=== PATIENT | female | born 1995 | race Asian ===

== ENCOUNTER 2019-09-10 22:32 | Outpatient (CLI) | payer SELFPAY ==
[~2019-09-10] VITALS: Ht 162.6 cm; Wt 79.5 kg
[2019-09-10 22:57] VITALS: BP 105/65
[2019-09-11 00:27] LABS: MICROSCOPIC AUTO
[2019-09-11 00:35] LABS: BASOPHILS # (AUTO) 0.04 x10^3/uL (0-0.1); BASOPHILS % (AUTO) 1 % (0-1); EOSINOPHILS # (AUTO) 0.16 x10^3/uL (0-0.4); EOSINOPHILS % (AUTO) 2 % (1-7); LYMPHOCYTES # (AUTO) 2.13 x10^3/uL (1-3.4); LYMPHOCYTES % (AUTO) 24 % (22-44); MD NO; MEAN CORPUSCULAR HEMOGLOBIN 30.9 pg (27.0-34.8); MEAN CORPUSCULAR HGB CONC 32.8 g/dL (32.4-35.8); MEAN CORPUSCULAR VOLUME 94.2 fL (80-100); MEAN PLATELET VOLUME 7.5 fL (7.4-10.4); MONOCYTES # (AUTO) 0.55 x10^3/uL (0.2-0.8); MONOCYTES % (AUTO) 6 % (2-9); NEUTROPHILS # (AUTO) 5.96 x10^3/uL (1.8-6.8); NEUTROPHILS % (AUTO) 67 % (42-75); PLATELET COUNT 379 x10^3/uL (130-400); RED BLOOD COUNT 3.53 x10^6/uL (3.82-5.3); RED CELL DISTRIBUTION WIDTH 13.1 % (9.6-15.2)
[2019-09-11 00:38] LABS: AMPHETAMINE SCREEN, URINE Negative (Negative); BARBITURATE SCREEN, URINE Negative (Negative); BENZODIAZEPINE SCREEN, URINE Negative (Negative); CANNABINOID SCREEN, URINE Negative (Negative); COCAINE SCREEN, URINE Negative (Negative); METHADONE SCREEN, URINE Negative (Negative); OPIATE SCREEN, URINE Negative (Negative)
[2019-09-11] MEDS ORDERED: NITR100C56 PO (00:52)
[2019-09-11] MEDS ORDERED: ACETAMINOPHEN 325 MG TABLET ONE (01:11)
[2019-09-11] MEDS ORDERED: ACETAMINOPHEN 325 MG TABLET PO ONE (01:30)
== END 2019-09-11 01:20 | disposition home or self-care (01) ==
LOC: LDOP 22:32
PROVIDERS: ATTEND Obstetrics & Gynecology
DX: O26.893 Other specified pregnancy related conditions, third trimester (principal); O23.43 Unspecified infection of urinary tract in pregnancy, third trimester; R10.30 Lower abdominal pain, unspecified; Z3A.30 30 weeks gestation of pregnancy
CPT/HCPCS: 36415; 59025; 76805; 80307; 81001; 85025; 86592; 86762; 86803; 86850; 86900; 87086; 87340; 87389; 99211; G0463

== ENCOUNTER 2019-09-11 15:14 | Outpatient (CLI) | payer SELFPAY ==
[~2019-09-11] VITALS: Ht 162.6 cm; Wt 81.8 kg
[~2019-09-11 15:14] MED LIST: NITR100C56 PO
[2019-09-11] MEDS ORDERED: TERBUTALINE 1 MG/ML, 1ML ONE (15:50)
[2019-09-11] MEDS ORDERED: TERBUTALINE 1 MG/ML, 1ML SQ ONE (16:00)
[2019-09-11] MEDS ORDERED: PLEASE ENTER HEIGHT AND WEIGHT MC SCH (16:30)
[2019-09-11] MEDS ORDERED: PLEASE ENTER ALLERGIES MC SCH (16:30)
[2019-09-11] MEDS ORDERED: FENTANYL PF 100 MCG/2ML ONE ×2 (16:44→18:19)
[2019-09-11] MEDS ORDERED: ONDANSETRON 2MG/ML, 2ML ONE (16:44)
[2019-09-11] MEDS: FENTANYL PF 100 MCG/2ML IVPush PRN ×2 (16:46→18:28)
[2019-09-11] MEDS ORDERED: MORPHINE SULFATE 4 MG/ML, 1ML IVPush PRN (17:00)
[2019-09-11] MEDS ORDERED: ONDANSETRON 2MG/ML, 2ML IVPush PRN (17:00)
[2019-09-11] MEDS ORDERED: LACTATED RINGERS 1,000 ML IV SCH (17:30)
[2019-09-11] MEDS ORDERED: LACTATED RINGERS 1,000 ML IVBOLUS ONE (17:30)
[2019-09-11 17:31] LABS: MEAN CORPUSCULAR HEMOGLOBIN 30.9 pg (27.0-34.8); MEAN CORPUSCULAR HGB CONC 33.2 g/dL (32.4-35.8); MEAN CORPUSCULAR VOLUME 93.2 fL (80-100); MEAN PLATELET VOLUME 7.6 fL (7.4-10.4); PLATELET COUNT 331 x10^3/uL (130-400); RED BLOOD COUNT 3.36 x10^6/uL (3.82-5.3); RED CELL DISTRIBUTION WIDTH 13.4 % (9.6-15.2)
[2019-09-11 17:32] LABS: ALANINE AMINOTRANSFERASE 10 U/L (12-78); ALBUMIN 2.6 g/dL (3.4-5.0); ANION GAP 10 mmol/L (5-15); CALCIUM 8.1 mg/dL (8.5-10.1); CHLORIDE 106 mmol/L (98-107); CREATININE 0.63 mg/dL (0.55-1.02)
[2019-09-11 17:34] LABS: ALKALINE PHOSPHATASE 72 U/L (45-117); BILIRUBIN,TOTAL 0.2 mg/dL (0.2-1.0); TOTAL PROTEIN 7.4 g/dL (6.4-8.2)
[2019-09-11 17:47] VITALS: BP 101/62
[2019-09-11 18:09] LABS: MD YES
[2019-09-11 18:11] LABS: BAND#(MANUAL) 2.62 x10^3/uL; BANDS%(MANUAL) 17 % (0-7); LYMPH#(MANUAL) 2.62 x10^3/uL (1-3.4); LYMPHS% (MANUAL) 17 % (22-44); MONOS#(MANUAL) 0.46 x10^3/uL (0.3-2.7); MONOS% (MANUAL) 3 % (2-9); SEGS% (MANUAL) 63 % (42-75)
[2019-09-11 18:12] LABS: <PLATELET ESTIMATE> ADEQUATE; <PLT MORPHOLOGY> NORMAL PLT MORPH; <RBC MORPHOLOGY> NORMAL
[2019-09-11] MEDS ORDERED: CEFTRIAXONE 250 MG IV ONE (19:00)
[2019-09-11] MEDS ORDERED: CEFTRIAXONE 250 MG in SODIUM CHLORIDE 0.9% 50 ML IV ONE (19:30)
== END 2019-09-11 19:20 | disposition home or self-care (01) ==
LOC: LDOP 15:14 → UNDOADMOB 17:06 → LDIP 17:06 → LDOP 19:20 → UNDODISOB 19:20
PROVIDERS: ATTEND Obstetrics & Gynecology
DX: O26.893 Other specified pregnancy related conditions, third trimester (principal); M54.9 Dorsalgia, unspecified; R55 Syncope and collapse; Z3A.30 30 weeks gestation of pregnancy
CPT/HCPCS: 36415; 59025; 76700; 80053; 82150; 83690; 85025; 96361; 96372; 96374; 96375; 96376; 99211; J2405; J3010; J3105; J7120; 96360; G0378; G0463

== ENCOUNTER 2019-09-11 19:31 | Inpatient (IN) | payer MEDICAID, OTHER ==
[~2019-09-11] VITALS: Ht 162.6 cm; Wt 76.3 kg
--- NOTE | 2019-09-11 19:42 | NUR ---
PT WITH PAIN "IN MY BACK IN MY STOMACH" PT WENT STRAIGHT TO L&D. PT CLEARED FROM L&D AND SENT TO ED FOR MONITORING TO RECIEVED K RIDER FOR LOW K. PT ATTACHED TO ALL MONITORS
--- NOTE | 2019-09-11 19:49 | NUR ---
PT STATES SHE RECIEVED A PAIN PILL IN L&D
[2019-09-11] MEDS ORDERED: POTASSIUM CHLORIDE 40 MEQ in SODIUM CHLORIDE 0.9% 500 ML IV ONE (20:30)
[2019-09-11] MEDS ORDERED: ONDANSETRON 2MG/ML, 2ML IVPush ONE (20:30)
[2019-09-11] MEDS ORDERED: SODIUM CHLORIDE FLUSH 10ML SYR IVF ONE (20:30)
[2019-09-11] MEDS ORDERED: CEFTRIAXONE PMX 1GM/50ML 50 ML IV ONE (20:30)
[2019-09-11] MEDS ORDERED: ONDANSETRON 2MG/ML, 2ML ONE (20:32)
[2019-09-11] MEDS ORDERED: MORPHINE SULFATE 4 MG/ML, 1ML ONE ×2 (20:32→22:20)
[2019-09-11] MEDS: MORPHINE SULFATE 4 MG/ML, 1ML IVPush PRN ×2 (20:33→22:21)
[2019-09-11] MEDS ORDERED: CEFTRIAXONE PMX 1GM/50ML 50 ML ONE (20:37)
--- NOTE | 2019-09-11 20:48 | NUR ---
PER ER MD MCDONALD, NO BLOOD CULTURES BEFORE ABX
--- NOTE | 2019-09-11 20:51 | NUR ---
PER ARCHIE IN PHARM, K CL AND ROCEPHIN ARE COMPATIBLE IN IV
--- NOTE | 2019-09-11 20:57 | NUR ---
PT RESTING ON GURNEY. STATES HER PAIN HAS IMPROVED AFTER PAIN MEDS FROM A 10/10 TO A 5/10. IV MEDS STARTED PER EMAR.
[2019-09-11 20:58] LABS: BASOPHILS # (AUTO) 0.01 x10^3/uL (0-0.1); BASOPHILS % (AUTO) 0 % (0-1); EOSINOPHILS % (AUTO) 0 % (1-7); LYMPHOCYTES # (AUTO) 0.54 x10^3/uL (1-3.4); LYMPHOCYTES % (AUTO) 5 % (22-44); MD NO; MEAN CORPUSCULAR HEMOGLOBIN 30.6 pg (27.0-34.8); MEAN CORPUSCULAR VOLUME 92.6 fL (80-100); MEAN PLATELET VOLUME 6.9 fL (7.4-10.4); MONOCYTES # (AUTO) 0.21 x10^3/uL (0.2-0.8); MONOCYTES % (AUTO) 2 % (2-9); NEUTROPHILS # (AUTO) 9.83 x10^3/uL (1.8-6.8); NEUTROPHILS % (AUTO) 93 % (42-75); PLATELET COUNT 291 x10^3/uL (130-400); RED BLOOD COUNT 3.22 x10^6/uL (3.82-5.3); RED CELL DISTRIBUTION WIDTH 12.8 % (9.6-15.2)
[2019-09-11 21:03] LABS: ALANINE AMINOTRANSFERASE 10 U/L (12-78); ALBUMIN 2.4 g/dL (3.4-5.0); ANION GAP 10 mmol/L (5-15); CALCIUM 7.8 mg/dL (8.5-10.1); CHLORIDE 106 mmol/L (98-107)
[2019-09-11 21:20] LABS: ALKALINE PHOSPHATASE 66 U/L (45-117); BILIRUBIN,TOTAL 0.5 mg/dL (0.2-1.0); TOTAL PROTEIN 6.8 g/dL (6.4-8.2)
--- NOTE | 2019-09-11 22:23 | NUR ---
PT REPORTS INCREASING PAIN IN ABD 08/16. PT MEDICATED FOR PAIN PER EMAR.
[2019-09-11 22:36] LABS: MICROSCOPIC INDICATED
[2019-09-11 22:37] LABS: CULTURE INDICATED? YES
--- NOTE | 2019-09-11 22:44 | NUR ---
REPORT TO KAREN HARRELL ON L&D
[2019-09-11] MEDS ORDERED: OXYcodone/APAP 5/325MG TABLET ONE (23:53)
[2019-09-11] MEDS: OXYcodone/APAP 5/325MG TABLET PO PRN (23:54)
[2019-09-12] MEDS ORDERED: POTASSIUM CHLORIDE 20 MEQ TAB.ER.PRT PO SCH
[2019-09-12] MEDS ORDERED: ONDANSETRON ODT 4 MG PO PRN
[2019-09-12] MEDS ORDERED: FENTANYL PF 100 MCG/2ML ONE ×2 (00:46→07:37)
[2019-09-12] MEDS: OXYcodone/APAP 5/325MG TABLET PO PRN ×2 (00:50→05:39)
[2019-09-12] MEDS: LACTATED RINGERS 1,000 ML IV SCH ×3 (00:54→23:56)
[2019-09-12] MEDS ORDERED: FENTANYL PF 100 MCG/2ML IVPush ONE ×2 (01:00→08:00)
[2019-09-12] MEDS ORDERED: FLU VACC QS2019-20 36MOS UP/PF 0.5 ML IM-VACC ONE (04:30)
[2019-09-12 05:38] LABS: MEAN CORPUSCULAR HEMOGLOBIN 30.7 pg (27.0-34.8); MEAN CORPUSCULAR HGB CONC 33.4 g/dL (32.4-35.8); MEAN CORPUSCULAR VOLUME 92.1 fL (80-100); MEAN PLATELET VOLUME 7.2 fL (7.4-10.4); PLATELET COUNT 272 x10^3/uL (130-400); RED BLOOD COUNT 3.16 x10^6/uL (3.82-5.3); RED CELL DISTRIBUTION WIDTH 13.5 % (9.6-15.2)
[2019-09-12] MEDS ORDERED: OXYcodone/APAP 5/325MG TABLET ONE (05:38)
[2019-09-12 05:50] LABS: ALBUMIN 2.3 g/dL (3.4-5.0); ANION GAP 10 mmol/L (5-15); CALCIUM 8.1 mg/dL (8.5-10.1); CHLORIDE 106 mmol/L (98-107)
[2019-09-12 05:54] LABS: ALKALINE PHOSPHATASE 59 U/L (45-117); BILIRUBIN,TOTAL 0.4 mg/dL (0.2-1.0); TOTAL PROTEIN 6.5 g/dL (6.4-8.2)
[2019-09-12 05:56] LABS: ALANINE AMINOTRANSFERASE < 6 U/L (12-78)
[2019-09-12 05:57] LABS: MD YES
[2019-09-12 05:59] LABS: BAND#(MANUAL) 3.67 x10^3/uL; BANDS%(MANUAL) 24 % (0-7); LYMPH#(MANUAL) 1.22 x10^3/uL (1-3.4); LYMPHS% (MANUAL) 8 % (22-44); METAMYELOCYTES# (MANUAL) 0.15 x10^3/uL (0-0); METAMYELOCYTES% (MANUAL) 1 % (0-1); MONOS#(MANUAL) 0.31 x10^3/uL (0.3-2.7); MONOS% (MANUAL) 2 % (2-9); SEG#(MANUAL) 9.95 x10^3/uL (1.8-6.8); SEGS% (MANUAL) 65 % (42-75)
[2019-09-12 06:03] LABS: <PLATELET ESTIMATE> ADEQUATE; <RBC MORPHOLOGY> NORMAL
[2019-09-12 06:04] LABS: <PLT MORPHOLOGY> NORMAL PLT MORPH
[2019-09-12 11:35] VITALS: BP 98/61
[2019-09-12] MEDS ORDERED: ACETAMINOPHEN 325 MG TABLET ONE ×2 (11:53→23:54)
[2019-09-12] MEDS: ACETAMINOPHEN 325 MG TABLET PO PRN ×2 (11:54→23:56)
[2019-09-12] MEDS ORDERED: MORPHINE SULFATE 4 MG/ML, 1ML ONE ×3 (16:10→23:46)
[2019-09-12] MEDS: MORPHINE SULFATE 4 MG/ML, 1ML IVPush PRN ×3 (16:13→23:49)
[2019-09-12] MEDS: METRONIDAZOLE PMX 500MG/100ML 100 ML IV SCH (18:16)
[2019-09-12] MEDS ORDERED: CEFTRIAXONE PMX 1GM/50ML 50 ML IV SCH (20:30)
[2019-09-12 20:53] VITALS: BP 104/71
[2019-09-13] MEDS: METRONIDAZOLE PMX 500MG/100ML 100 ML IV SCH (01:31)
[2019-09-13 02:08] LABS: MEAN CORPUSCULAR HEMOGLOBIN 31.1 pg (27.0-34.8); MEAN CORPUSCULAR HGB CONC 33.3 g/dL (32.4-35.8); MEAN CORPUSCULAR VOLUME 93.6 fL (80-100); MEAN PLATELET VOLUME 7.2 fL (7.4-10.4); PLATELET COUNT 252 x10^3/uL (130-400); RED BLOOD COUNT 2.85 x10^6/uL (3.82-5.3); RED CELL DISTRIBUTION WIDTH 13.4 % (9.6-15.2)
[2019-09-13 02:26] LABS: MICROSCOPIC INDICATED
[2019-09-13 02:48] LABS: MD YES
[2019-09-13 02:49] LABS: <RBC MORPHOLOGY> NORMAL; BAND#(MANUAL) 0.46 x10^3/uL; BANDS%(MANUAL) 4 % (0-7); LYMPH#(MANUAL) 1.37 x10^3/uL (1-3.4); LYMPHS% (MANUAL) 12 % (22-44); MONOS#(MANUAL) 0.57 x10^3/uL (0.3-2.7); MONOS% (MANUAL) 5 % (2-9); SEG#(MANUAL) 9.01 x10^3/uL (1.8-6.8); SEGS% (MANUAL) 79 % (42-75)
[2019-09-13 02:50] LABS: <PLATELET ESTIMATE> ADEQUATE; <PLT MORPHOLOGY> NORMAL PLT MORPH; PMNS WITH VACUOLES 1+
[2019-09-13] MEDS ORDERED: D5%-LACTATED RINGERS 1,000 ML IV SCH (03:00)
[2019-09-13] MEDS: PIPERACILLIN/TAZO/PMX 3.375GM 50 ML IV SCH ×3 (03:07→08:32)
[2019-09-13] MEDS ORDERED: ACETAMINOPHEN 325 MG TABLET ONE (03:31)
[2019-09-13] MEDS ORDERED: MORPHINE SULFATE 4 MG/ML, 1ML ONE ×2 (03:31→08:27)
[2019-09-13] MEDS: MORPHINE SULFATE 4 MG/ML, 1ML IVPush PRN ×2 (03:36→08:32)
[2019-09-13] MEDS: ACETAMINOPHEN 325 MG TABLET PO PRN (03:37)
[2019-09-13 03:51] LABS: RAPID INFLUENZA A Negative (Negative); RAPID INFLUENZA B Negative (Negative)
[2019-09-13 06:45] LABS: BASOPHILS % (AUTO) 0 % (0-1); EOSINOPHILS # (AUTO) 0.01 x10^3/uL (0-0.4); EOSINOPHILS % (AUTO) 0 % (1-7); LYMPHOCYTES # (AUTO) 0.83 x10^3/uL (1-3.4); LYMPHOCYTES % (AUTO) 7 % (22-44); MD NO; MEAN CORPUSCULAR HEMOGLOBIN 31.8 pg (27.0-34.8); MEAN CORPUSCULAR HGB CONC 33.7 g/dL (32.4-35.8); MEAN CORPUSCULAR VOLUME 94.3 fL (80-100); MEAN PLATELET VOLUME 7.2 fL (7.4-10.4); MONOCYTES # (AUTO) 0.97 x10^3/uL (0.2-0.8); MONOCYTES % (AUTO) 8 % (2-9); NEUTROPHILS # (AUTO) 10.42 x10^3/uL (1.8-6.8); NEUTROPHILS % (AUTO) 85 % (42-75); PLATELET COUNT 241 x10^3/uL (130-400); RED BLOOD COUNT 2.73 x10^6/uL (3.82-5.3); RED CELL DISTRIBUTION WIDTH 13.8 % (9.6-15.2)
[2019-09-13 06:54] LABS: ALBUMIN 2.1 g/dL (3.4-5.0); ANION GAP 7 mmol/L (5-15); CALCIUM 7.7 mg/dL (8.5-10.1); CHLORIDE 111 mmol/L (98-107); CREATININE 0.69 mg/dL (0.55-1.02)
[2019-09-13 06:55] LABS: ALANINE AMINOTRANSFERASE < 6 U/L (12-78)
[2019-09-13 06:56] LABS: ALKALINE PHOSPHATASE 57 U/L (45-117); BILIRUBIN,TOTAL 0.4 mg/dL (0.2-1.0); TOTAL PROTEIN 6.3 g/dL (6.4-8.2)
[2019-09-13] MEDS: LACTATED RINGERS 1,000 ML IV SCH ×3 (07:31→15:27)
[2019-09-13] MEDS ORDERED: ETOMIDATE 20 MG/10 ML ONE (08:00)
[2019-09-13] MEDS ORDERED: PROPOFOL 100 ML IV ONE (08:00)
[2019-09-13] MEDS ORDERED: ROCURONIUM 10 MG/ML,10ML ONE (08:00)
[2019-09-13] MEDS ORDERED: LIDOCAINE 1%, 10ML ONE (08:56)
[2019-09-13] MEDS: PRENATAL VIT/IRON/FA 1 EACH TABLET PO SCH (09:00)
[2019-09-13] MEDS ORDERED: PROPOFOL 10 MG/ML, 20ML ONE (10:10)
[2019-09-13] MEDS ORDERED: VISIPAQUE 270 MG/ML, 50ML BOTTLE ONE (10:48)
[2019-09-13] MEDS ORDERED: FENTANYL PF 100 MCG/2ML ONE ×2 (11:37→13:38)
[2019-09-13] MEDS ORDERED: PROPOFOL 0 ML IV ONE (11:42)
[2019-09-13] MEDS ORDERED: PROPOFOL 100 ML IV PRN ×2 (12:00→13:44)
[2019-09-13] MEDS ORDERED: NOREPINEPHRINE 4 MG in SODIUM CHLORIDE 0.9% 246 ML IV PRN (12:00)
[2019-09-13] MEDS ORDERED: BETAMETHASONE 6 MG/ML, 5ML IM SCH (12:00)
[2019-09-13] MEDS ORDERED: LACTATED RINGERS 1,000 ML IVBOLUS ONE (12:00)
[2019-09-13] MEDS ORDERED: ACETAMINOPHEN 650 MG SUPP ONE (12:10)
[2019-09-13 12:18] LABS: PROTHROMBIN TIME 10.5 Seconds (9.6-11.5)
[2019-09-13 12:26] LABS: ALANINE AMINOTRANSFERASE < 6 U/L (12-78); ALBUMIN 2.1 g/dL (3.4-5.0); ANION GAP 9 mmol/L (5-15); CALCIUM 7.7 mg/dL (8.5-10.1); CHLORIDE 110 mmol/L (98-107); CREATININE 1.08 mg/dL (0.55-1.02)
[2019-09-13] MEDS ORDERED: ACETAMINOPHEN 650 MG SUPP PR PRN (12:30)
[2019-09-13] MEDS ORDERED: LACTATED RINGERS 1,000 ML IV SCH (12:30)
[2019-09-13 12:31] LABS: ALKALINE PHOSPHATASE 66 U/L (45-117); BILIRUBIN,TOTAL 0.5 mg/dL (0.2-1.0); TOTAL PROTEIN 6.6 g/dL (6.4-8.2); TROPONIN I < 0.015 ng/mL (0.000-0.045)
[2019-09-13 12:49] LABS: MEAN CORPUSCULAR HEMOGLOBIN 30.8 pg (27.0-34.8); MEAN CORPUSCULAR VOLUME 93.3 fL (80-100); PLATELET COUNT 224 x10^3/uL (130-400); RED BLOOD COUNT 3.15 x10^6/uL (3.82-5.3); RED CELL DISTRIBUTION WIDTH 13.8 % (9.6-15.2)
[2019-09-13 12:50] LABS: MD YES
[2019-09-13] MEDS: VANCOMYCIN 1,200 MG in SODIUM CHLORIDE 0.9% 250 ML IV SCH (13:25)
[2019-09-13 13:43] LABS: BAND#(MANUAL) 0.48 x10^3/uL; BANDS%(MANUAL) 21 % (0-7); LYMPH#(MANUAL) 1.04 x10^3/uL (1-3.4); LYMPHS% (MANUAL) 45 % (22-44); METAMYELOCYTES# (MANUAL) 0.02 x10^3/uL (0-0); METAMYELOCYTES% (MANUAL) 1 % (0-1); MONOS#(MANUAL) 0.02 x10^3/uL (0.3-2.7); MONOS% (MANUAL) 1 % (2-9); SEG#(MANUAL) 0.74 x10^3/uL (1.8-6.8); SEGS% (MANUAL) 32 % (42-75)
[2019-09-13 13:44] LABS: <PLATELET ESTIMATE> ADEQUATE; <PLT MORPHOLOGY> NORMAL PLT MORPH; <RBC MORPHOLOGY> NORMAL; HEMOGRAM NOTE RECHECKED
[2019-09-13] MEDS ORDERED: VASOPRESSIN 100 UNIT in SODIUM CHLORIDE 0.9% 495 ML IV PRN (13:44)
[2019-09-13] MEDS ORDERED: BISACODYL 10 MG SUPP PR PRN (14:00)
[2019-09-13] MEDS ORDERED: PHARMACY MAY ADJ FOR RENAL FX MC SCH (14:00)
[2019-09-13] MEDS ORDERED: LACTULOSE 20 GM/30 ML UDC NG PRN (14:00)
[2019-09-13] MEDS ORDERED: DEXTROSE 4 GM TAB.CHEW PO PRN (14:00)
[2019-09-13] MEDS ORDERED: SENNA 176 MG/5 ML ORAL SOL NG PRN (14:00)
[2019-09-13] MEDS ORDERED: DEXTROSE 50%, 50ML SYRINGE IVPush PRN (14:00)
[2019-09-13] MEDS ORDERED: LIDOCAINE-MPF 1%, 2ML ENDO PRN (14:00)
[2019-09-13] MEDS ORDERED: FENTANYL PF 100 MCG/2ML IVPush ONE (14:00)
[2019-09-13] MEDS ORDERED: SENNA/DOCUSATE TABLET NG PRN (14:00)
[2019-09-13] MEDS ORDERED: GLUCAGON 1 MG IM PRN (14:00)
[2019-09-13] MEDS ORDERED: SODIUM CHLORIDE 0.9% 1,000ML IV SCH (14:00)
[2019-09-13] MEDS ORDERED: DEXMEDETOMIDINE 1,000 MCG in SODIUM CHLORIDE 0.9% 240 ML IV PRN (14:32)
[2019-09-13] MEDS ORDERED: BETAMETHASONE 6 MG/ML, 5ML IM ONE (14:33)
[2019-09-13 14:38] LABS: ANION GAP 5 mmol/L (5-15); CALCIUM 6.9 mg/dL (8.5-10.1); CHLORIDE 112 mmol/L (98-107); CREATININE 0.68 mg/dL (0.55-1.02)
[2019-09-13] MEDS: FENTANYL PF 100 MCG/2ML IVPush PRN ×3 (14:41→22:32)
[2019-09-13] MEDS: ALBUTEROL/IPRATROPIUM 2.5MG/0.5MG, 3 ML INLINE SCH ×3 (14:55→22:21)
[2019-09-13] MEDS ORDERED: DEXMEDETOMIDINE 200 MCG in SODIUM CHLORIDE 0.9% 48 ML IV PRN (15:00)
[2019-09-13] MEDS: MEROPENEM 1 GM in SODIUM CHLORIDE 0.9% 100 ML IV SCH ×2 (15:06→21:42)
[2019-09-13] MEDS: FAMOTIDINE 20 MG/2 ML IV SCH (15:40)
[2019-09-13] MEDS ORDERED: MAGNESIUM SULFATE PMX 2GM/50ML 50 ML ONE (15:50)
[2019-09-13] MEDS ORDERED: MAGNESIUM SULFATE PMX 2GM/50ML 50 ML IV ONE (16:00)
[2019-09-13] MEDS ORDERED: INSULIN LISPRO 100 UNITS/ML, PEN SQ-INSULIN SCH (16:00)
[2019-09-13] MEDS ORDERED: POTASSIUM CHLORIDE 40 MEQ in SODIUM CHLORIDE 0.9% 100 ML IV ONE (16:00)
[2019-09-13] MEDS ORDERED: MIDAZOLAM 1 MG/ML, 2ML ONE (16:18)
[2019-09-13] MEDS: MIDAZOLAM HCL 25 MG in SODIUM CHLORIDE 0.9% 245 ML IV PRN ×2 (16:28→20:15)
[2019-09-13] MEDS ORDERED: VASOPRESSIN 20 UNIT/ML, 1ML IVPush ONE (16:30)
[2019-09-13] MEDS ORDERED: SODIUM BICARBONATE 1 MEQ/ML, 50ML VIAL IVPush STA (16:45)
[2019-09-13] MEDS ORDERED: SODIUM BICARBONATE 1 MEQ/ML, 50ML VIAL ONE (16:48)
[2019-09-13] MEDS: NOREPINEPHRINE 4 MG in SODIUM CHLORIDE 0.9% 246 ML IV PRN ×2 (17:03→20:00)
[2019-09-13] MEDS: PHENYLEPHRINE 20 MG in SODIUM CHLORIDE 0.9% 248 ML IV PRN ×2 (17:31→23:22)
[2019-09-13] MEDS: HYDROCORTISONE 100 MG INJ. IVPush SCH (17:48)
[2019-09-13] MEDS: HEPARIN 5,000 UNITS/ML, 1ML SQ SCH (20:15)
[2019-09-13] MEDS ORDERED: SODIUM BICARBONATE 8.4% 150 MEQ in DEXTROSE 5% 1,000 ML IV SCH (21:00)
[2019-09-13] MEDS: SODIUM CHLORIDE FLUSH 10ML SYR IVF SCH (21:07)
[2019-09-13] MEDS ORDERED: NOREPINEPHRINE 8 MG in SODIUM CHLORIDE 0.9% 246 ML IV PRN (22:00)
[2019-09-13 22:21] LABS: ANION GAP 8 mmol/L (5-15); CHLORIDE 114 mmol/L (98-107); CREATININE 0.48 mg/dL (0.55-1.02)
[2019-09-13] MEDS: INSULIN LISPRO 100 UNITS/ML, PEN SQ-INSULIN SCH (23:20)
[2019-09-13 23:31] LABS: MEAN CORPUSCULAR HEMOGLOBIN 31.1 pg (27.0-34.8); MEAN CORPUSCULAR VOLUME 94.3 fL (80-100); MEAN PLATELET VOLUME 7.7 fL (7.4-10.4); PLATELET COUNT 257 x10^3/uL (130-400); RED BLOOD COUNT 2.96 x10^6/uL (3.82-5.3); RED CELL DISTRIBUTION WIDTH 13.7 % (9.6-15.2)
[2019-09-13 23:38] LABS: INTERNATIONAL NORMALIZED RATIO 1.02 (0.93-1.1); PROTHROMBIN TIME 10.7 Seconds (9.6-11.5)
[2019-09-13 23:58] LABS: MD YES
[2019-09-14] MEDS ORDERED: SODIUM BICARB 8.4%, 50ML SYRINGE IVPush STA
[2019-09-14 00:01] LABS: <RBC MORPHOLOGY> NORMAL; BAND#(MANUAL) 1.64 x10^3/uL; BANDS%(MANUAL) 8 % (0-7); LYMPH#(MANUAL) 0.62 x10^3/uL (1-3.4); LYMPHS% (MANUAL) 3 % (22-44); MONOS#(MANUAL) 0.21 x10^3/uL (0.3-2.7); MONOS% (MANUAL) 1 % (2-9); SEG#(MANUAL) 18.04 x10^3/uL (1.8-6.8); SEGS% (MANUAL) 88 % (42-75)
[2019-09-14 00:02] LABS: <PLATELET ESTIMATE> ADEQUATE; <PLT MORPHOLOGY> NORMAL PLT MORPH
[2019-09-14] MEDS: HYDROCORTISONE 100 MG INJ. IVPush SCH ×3 (00:14→15:44)
[2019-09-14] MEDS: FENTANYL PF 100 MCG/2ML IVPush PRN ×7 (00:25→18:40)
[2019-09-14] MEDS: DOBUTAMINE/D5W PMX 250 ML IV SCH ×2 (00:45→20:20)
[2019-09-14] MEDS: MIDAZOLAM HCL 25 MG in SODIUM CHLORIDE 0.9% 245 ML IV PRN ×2 (01:37→07:31)
[2019-09-14] MEDS: FAMOTIDINE 20 MG/2 ML IV SCH ×2 (01:50→13:21)
[2019-09-14] MEDS: VANCOMYCIN 1,200 MG in SODIUM CHLORIDE 0.9% 250 ML IV SCH (01:55)
[2019-09-14] MEDS: ALBUTEROL/IPRATROPIUM 2.5MG/0.5MG, 3 ML INLINE SCH ×6 (02:14→22:00)
[2019-09-14 04:22] LABS: MEAN CORPUSCULAR HEMOGLOBIN 31.2 pg (27.0-34.8); MEAN CORPUSCULAR HGB CONC 33.2 g/dL (32.4-35.8); MEAN CORPUSCULAR VOLUME 93.8 fL (80-100); MEAN PLATELET VOLUME 7.6 fL (7.4-10.4); PLATELET COUNT 198 x10^3/uL (130-400); RED BLOOD COUNT 2.75 x10^6/uL (3.82-5.3); RED CELL DISTRIBUTION WIDTH 13.9 % (9.6-15.2)
[2019-09-14] MEDS: HEPARIN 5,000 UNITS/ML, 1ML SQ SCH ×3 (04:24→20:07)
[2019-09-14 04:27] LABS: ALANINE AMINOTRANSFERASE 12 U/L (12-78); ALBUMIN 1.5 g/dL (3.4-5.0); ANION GAP 13 mmol/L (5-15); CALCIUM 7.2 mg/dL (8.5-10.1); CHLORIDE 113 mmol/L (98-107); CREATININE 0.48 mg/dL (0.55-1.02)
[2019-09-14 04:30] LABS: ALKALINE PHOSPHATASE 85 U/L (45-117); BILIRUBIN,TOTAL 0.6 mg/dL (0.2-1.0); TOTAL PROTEIN 5.1 g/dL (6.4-8.2)
[2019-09-14] MEDS ORDERED: SODIUM BICARBONATE 1 MEQ/ML, 50ML VIAL ONE (04:41)
[2019-09-14] MEDS: MEROPENEM 1 GM in SODIUM CHLORIDE 0.9% 100 ML IV SCH ×3 (04:58→21:35)
[2019-09-14 05:00] VITALS: BP 102/55
[2019-09-14] MEDS: INSULIN LISPRO 100 UNITS/ML, PEN SQ-INSULIN SCH ×4 (05:00→23:30)
[2019-09-14] MEDS ORDERED: SODIUM BICARB 8.4%, 50ML SYRINGE IVPush ONE (05:00)
[2019-09-14] MEDS ORDERED: FUROSEMIDE 20 MG/2 ML IV ONE (05:00)
[2019-09-14 05:43] LABS: BASOPHILS % (AUTO) 0 % (0-1); EOSINOPHILS # (AUTO) 0.02 x10^3/uL (0-0.4); EOSINOPHILS % (AUTO) 0 % (1-7); LYMPHOCYTES # (AUTO) 0.88 x10^3/uL (1-3.4); LYMPHOCYTES % (AUTO) 5 % (22-44); MD SCAN; MONOCYTES # (AUTO) 0.41 x10^3/uL (0.2-0.8); MONOCYTES % (AUTO) 2 % (2-9); NEUTROPHILS # (AUTO) 15.98 x10^3/uL (1.8-6.8); NEUTROPHILS % (AUTO) 92 % (42-75)
[2019-09-14] MEDS ORDERED: POTASSIUM CHLORIDE 40 MEQ in SODIUM CHLORIDE 0.9% 100 ML IV ONE (07:00)
[2019-09-14] MEDS ORDERED: MAGNESIUM SULFATE PMX 4GM/100M 100 ML IV ONE (07:00)
[2019-09-14] MEDS: ALBUMIN HUMAN 25% 100 ML IV SCH ×3 (08:35→23:24)
[2019-09-14] MEDS: SODIUM CHLORIDE FLUSH 10ML SYR IVF SCH ×2 (09:00→20:22)
[2019-09-14] MEDS: PRENATAL VIT/IRON/FA 1 EACH TABLET PO SCH (09:10)
--- NOTE | 2019-09-14 10:38 | NUR ---
TF GOAL when ordered: w/ propofol: OSMOLITE 1.2 @ 65ml/hr off propofol: 70ml/hr
[2019-09-14] MEDS ORDERED: LACTATED RINGERS 1,000 ML IV SCH (12:30)
[2019-09-14] MEDS: SODIUM BICARBONATE 8.4% 150 MEQ in DEXTROSE 5% 1,000 ML IV SCH (12:36)
[2019-09-14] MEDS: MIDAZOLAM HCL 50 MG in SODIUM CHLORIDE 0.9% 240 ML IV PRN ×2 (13:00→20:21)
[2019-09-14 15:36] LABS: ANION GAP 14 mmol/L (5-15); CALCIUM 7.2 mg/dL (8.5-10.1); CHLORIDE 112 mmol/L (98-107); CREATININE 0.42 mg/dL (0.55-1.02)
[2019-09-14] MEDS ORDERED: POTASSIUM CHLORIDE 40 MEQ in SODIUM CHLORIDE 0.9% 100 ML IV STA (16:46)
[2019-09-14] MEDS: ACETAMINOPHEN 325 MG TABLET PO PRN (17:52)
[2019-09-14] MEDS ORDERED: SODIUM BICARBONATE 8.4% 150 MEQ in DEXTROSE 5% 1,000 ML IV SCH (21:00)
[2019-09-15 00:17] LABS: ANION GAP 9 mmol/L (5-15); CALCIUM 7.5 mg/dL (8.5-10.1); CHLORIDE 117 mmol/L (98-107); CREATININE 0.47 mg/dL (0.55-1.02)
[2019-09-15] MEDS: FENTANYL PF 100 MCG/2ML IVPush PRN ×5 (00:50→23:39)
[2019-09-15] MEDS: HYDROCORTISONE 100 MG INJ. IVPush SCH ×3 (00:51→17:00)
[2019-09-15] MEDS ORDERED: POTASSIUM CHLORIDE 40 MEQ in SODIUM CHLORIDE 0.9% 100 ML IV ONE (01:00)
[2019-09-15] MEDS: FAMOTIDINE 20 MG/2 ML IV SCH ×2 (01:55→14:04)
[2019-09-15] MEDS: SODIUM BICARBONATE 8.4% 150 MEQ in DEXTROSE 5% 1,000 ML IV SCH (01:56)
[2019-09-15] MEDS: ALBUTEROL/IPRATROPIUM 2.5MG/0.5MG, 3 ML INLINE SCH ×3 (03:00→10:38)
[2019-09-15] MEDS: HEPARIN 5,000 UNITS/ML, 1ML SQ SCH ×3 (03:56→19:41)
[2019-09-15] MEDS: INSULIN LISPRO 100 UNITS/ML, PEN SQ-INSULIN SCH ×4 (05:23→22:26)
[2019-09-15] MEDS: MEROPENEM 1 GM in SODIUM CHLORIDE 0.9% 100 ML IV SCH ×3 (05:24→21:58)
[2019-09-15] MEDS: MIDAZOLAM HCL 50 MG in SODIUM CHLORIDE 0.9% 240 ML IV PRN (05:25)
[2019-09-15 05:49] LABS: CALCIUM 7.6 mg/dL (8.5-10.1); CHLORIDE 116 mmol/L (98-107)
[2019-09-15 05:53] LABS: ANION GAP 8 mmol/L (5-15)
[2019-09-15 06:15] LABS: MEAN CORPUSCULAR HEMOGLOBIN 30.6 pg (27.0-34.8); MEAN CORPUSCULAR HGB CONC 33.2 g/dL (32.4-35.8); MEAN CORPUSCULAR VOLUME 92.2 fL (80-100); MEAN PLATELET VOLUME 7.2 fL (7.4-10.4); PLATELET COUNT 168 x10^3/uL (130-400); RED BLOOD COUNT 2.06 x10^6/uL (3.82-5.3); RED CELL DISTRIBUTION WIDTH 13.4 % (9.6-15.2)
[2019-09-15 07:01] LABS: BASOPHILS # (AUTO) 0.01 x10^3/uL (0-0.1); BASOPHILS % (AUTO) 0 % (0-1); EOSINOPHILS % (AUTO) 0 % (1-7); LYMPHOCYTES % (AUTO) 6 % (22-44); MD SCAN; MONOCYTES # (AUTO) 0.63 x10^3/uL (0.2-0.8); MONOCYTES % (AUTO) 5 % (2-9); NEUTROPHILS # (AUTO) 11.01 x10^3/uL (1.8-6.8); NEUTROPHILS % (AUTO) 89 % (42-75)
[2019-09-15] MEDS: ALBUMIN HUMAN 25% 100 ML IV SCH ×3 (07:33→23:30)
[2019-09-15 07:47] VITALS: BP 118/72
[2019-09-15 08:00] VITALS: BP 118/72
[2019-09-15 08:15] VITALS: BP 107/56
[2019-09-15 08:45] LABS: HIT RESULT NEGATIVE (NEGATIVE)
[2019-09-15 08:52] LABS: ANION GAP 9 mmol/L (5-15); CALCIUM 7.4 mg/dL (8.5-10.1); CHLORIDE 115 mmol/L (98-107); CREATININE 0.38 mg/dL (0.55-1.02)
[2019-09-15 09:00] VITALS: BP 110/60
[2019-09-15] MEDS: PRENATAL VIT/IRON/FA 1 EACH TABLET PO SCH (09:05)
[2019-09-15] MEDS: SODIUM CHLORIDE FLUSH 10ML SYR IVF SCH ×2 (09:05→19:41)
[2019-09-15] MEDS: POTASSIUM CHLORIDE 20 MEQ TAB.ER.PRT PO SCH ×2 (09:06→19:41)
[2019-09-15 09:36] LABS: ALBUMIN 2.5 g/dL (3.4-5.0); BILIRUBIN, DIRECT 0.2 mg/dL (0.1-0.2)
[2019-09-15 09:38] LABS: BILIRUBIN,INDIRECT 0.2 mg/dL (0.0-2.0); BILIRUBIN,TOTAL 0.4 mg/dL (0.2-1.0); TOTAL PROTEIN 5.1 g/dL (6.4-8.2)
[2019-09-15 10:30] VITALS: BP 120/82
[2019-09-15] MEDS ORDERED: ELECTROLYTE REPLACEMENT PROTOCOL CRITICAL CARE ONLY MC PRN (12:00)
[2019-09-15] MEDS ORDERED: FUROSEMIDE 20 MG/2 ML IV ONE (12:00)
[2019-09-15] MEDS ORDERED: POTASSIUM CHLORIDE 20 MEQ TAB.ER.PRT PO ONE (13:00)
[2019-09-15] MEDS: DOBUTAMINE/D5W PMX 250 ML IV SCH (15:40)
[2019-09-16] MEDS: HEPARIN 5,000 UNITS/ML, 1ML SQ SCH ×3 (01:11→20:33)
[2019-09-16] MEDS: FAMOTIDINE 20 MG/2 ML IV SCH (01:11)
[2019-09-16] MEDS: HYDROCORTISONE 100 MG INJ. IVPush SCH (01:11)
[2019-09-16] MEDS: FENTANYL PF 100 MCG/2ML IVPush PRN (03:54)
[2019-09-16] MEDS: INSULIN LISPRO 100 UNITS/ML, PEN SQ-INSULIN SCH ×2 (04:09→12:04)
[2019-09-16 04:21] LABS: MEAN CORPUSCULAR HEMOGLOBIN 30.7 pg (27.0-34.8); MEAN CORPUSCULAR HGB CONC 32.9 g/dL (32.4-35.8); MEAN CORPUSCULAR VOLUME 93.1 fL (80-100); MEAN PLATELET VOLUME 7.7 fL (7.4-10.4); PLATELET COUNT 164 x10^3/uL (130-400); RED BLOOD COUNT 2.55 x10^6/uL (3.82-5.3); RED CELL DISTRIBUTION WIDTH 13.7 % (9.6-15.2)
[2019-09-16 04:28] LABS: ANION GAP 6 mmol/L (5-15); CALCIUM 8.2 mg/dL (8.5-10.1); CHLORIDE 115 mmol/L (98-107); CREATININE 0.41 mg/dL (0.55-1.02); TRIGLYCERIDES 205 mg/dL (50-200)
[2019-09-16 04:38] LABS: BASOPHILS % (AUTO) 0 % (0-1); EOSINOPHILS % (AUTO) 0 % (1-7); LYMPHOCYTES # (AUTO) 0.93 x10^3/uL (1-3.4); LYMPHOCYTES % (AUTO) 8 % (22-44); MD SCAN; MONOCYTES # (AUTO) 0.59 x10^3/uL (0.2-0.8); MONOCYTES % (AUTO) 5 % (2-9); NEUTROPHILS # (AUTO) 9.73 x10^3/uL (1.8-6.8); NEUTROPHILS % (AUTO) 87 % (42-75)
[2019-09-16] MEDS: MEROPENEM 1 GM in SODIUM CHLORIDE 0.9% 100 ML IV SCH (05:32)
[2019-09-16] MEDS ORDERED: CEFTRIAXONE PMX 1GM/50ML 50 ML IV SCH (09:00)
[2019-09-16] MEDS: SODIUM CHLORIDE 0.9% 1,000 ML IV SCH ×2 (09:22→21:20)
[2019-09-16] MEDS: IRON SUCROSE COMPLEX 100MG/5ML IV SCH (09:43)
[2019-09-16] MEDS: LACTULOSE 20 GM/30 ML UDC PO SCH ×2 (09:43→20:33)
[2019-09-16] MEDS: PRENATAL VIT/IRON/FA 1 EACH TABLET PO SCH (09:43)
[2019-09-16] MEDS: SODIUM CHLORIDE FLUSH 10ML SYR IVF SCH ×2 (09:43→20:33)
[2019-09-16] MEDS: POTASSIUM CHLORIDE 20 MEQ TAB.ER.PRT PO SCH ×2 (09:43→20:33)
[2019-09-16 10:04] LABS: % IRON SATURATION 28 % (20-55); IRON LEVEL 83 mcg/dL (50-170); TOTAL IRON BINDING CAPACITY 299 mcg/dL (250-450)
[2019-09-16 10:19] VITALS: BP 108/71
[2019-09-16 10:35] VITALS: BP 100/68
[2019-09-16 11:00] VITALS: BP 107/75
[2019-09-16 11:30] VITALS: BP 111/75
[2019-09-16 12:00] VITALS: BP 112/72
[2019-09-16] MEDS: MORPHINE SULFATE 4 MG/ML, 1ML IVPush PRN (12:18)
[2019-09-16 13:00] VITALS: BP 112/76
[2019-09-16] MEDS ORDERED: FUROSEMIDE 20 MG/2 ML IV ONE (14:00)
[2019-09-16] MEDS: CEFTRIAXONE PMX 2GM/50ML 50 ML IV SCH (14:34)
[2019-09-17] MEDS: MORPHINE SULFATE 4 MG/ML, 1ML IVPush PRN (00:18)
[2019-09-17 04:34] LABS: BASOPHILS # (AUTO) 0.02 x10^3/uL (0-0.1); BASOPHILS % (AUTO) 0 % (0-1); EOSINOPHILS # (AUTO) 0.11 x10^3/uL (0-0.4); EOSINOPHILS % (AUTO) 1 % (1-7); LYMPHOCYTES # (AUTO) 1.77 x10^3/uL (1-3.4); LYMPHOCYTES % (AUTO) 18 % (22-44); MD NO; MEAN CORPUSCULAR HEMOGLOBIN 30.8 pg (27.0-34.8); MEAN CORPUSCULAR HGB CONC 33.4 g/dL (32.4-35.8); MEAN CORPUSCULAR VOLUME 92.2 fL (80-100); MEAN PLATELET VOLUME 7.3 fL (7.4-10.4); MONOCYTES # (AUTO) 0.43 x10^3/uL (0.2-0.8); MONOCYTES % (AUTO) 4 % (2-9); NEUTROPHILS # (AUTO) 7.47 x10^3/uL (1.8-6.8); NEUTROPHILS % (AUTO) 76 % (42-75); PLATELET COUNT 164 x10^3/uL (130-400); RED BLOOD COUNT 2.81 x10^6/uL (3.82-5.3)
[2019-09-17 04:46] LABS: ANION GAP 7 mmol/L (5-15); CALCIUM 7.7 mg/dL (8.5-10.1); CHLORIDE 112 mmol/L (98-107); CREATININE 0.41 mg/dL (0.55-1.02)
[2019-09-17] MEDS: HEPARIN 5,000 UNITS/ML, 1ML SQ SCH ×3 (05:28→20:01)
[2019-09-17] MEDS ORDERED: SODIUM PHOSPHATE 40 MMOL in SODIUM CHLORIDE 0.9% 500 ML IV ONE (07:00)
[2019-09-17] MEDS ORDERED: MAGNESIUM SULFATE PMX 4GM/100M 100 ML IV ONE (07:00)
[2019-09-17] MEDS: SODIUM CHLORIDE FLUSH 10ML SYR IVF SCH ×2 (07:55→20:03)
[2019-09-17] MEDS: PRENATAL VIT/IRON/FA 1 EACH TABLET PO SCH (07:55)
[2019-09-17] MEDS ORDERED: OXYcodone IR 5MG TABLET ONE ×4 (08:01→22:55)
[2019-09-17] MEDS: POTASSIUM CHLORIDE 20 MEQ TAB.ER.PRT PO SCH ×2 (08:04→17:14)
[2019-09-17] MEDS: IRON SUCROSE COMPLEX 100MG/5ML IV SCH (08:04)
[2019-09-17] MEDS: OXYcodone IR 5MG TABLET PO PRN ×4 (08:04→22:58)
[2019-09-17] MEDS: SODIUM CHLORIDE 0.9% 1,000 ML IV SCH ×2 (10:40→15:25)
[2019-09-17 11:30] LABS: ALBUMIN 2.6 g/dL (3.4-5.0); BILIRUBIN, DIRECT 0.3 mg/dL (0.1-0.2)
[2019-09-17 11:32] LABS: BILIRUBIN,INDIRECT 0.6 mg/dL (0.0-2.0); BILIRUBIN,TOTAL 0.9 mg/dL (0.2-1.0); TOTAL PROTEIN 5.9 g/dL (6.4-8.2)
[2019-09-17 12:41] VITALS: BP 95/51
[2019-09-17 14:17] VITALS: BP 97/47
[2019-09-17] MEDS: CEFTRIAXONE PMX 2GM/50ML 50 ML IV SCH (14:38)
[2019-09-17 16:00] VITALS: BP 97/56
[2019-09-17] MEDS ORDERED: HEPARIN 5,000 UNITS/ML, 1ML ONE (16:42)
[2019-09-17 18:00] VITALS: BP 100/64
[2019-09-17 23:15] LABS: ALANINE AMINOTRANSFERASE 42 U/L (12-78); ALBUMIN 2.4 g/dL (3.4-5.0); ANION GAP 6 mmol/L (5-15); CALCIUM 7.6 mg/dL (8.5-10.1); CHLORIDE 110 mmol/L (98-107)
[2019-09-17 23:17] LABS: ALKALINE PHOSPHATASE 69 U/L (45-117); BILIRUBIN,TOTAL 0.6 mg/dL (0.2-1.0); CREATININE 0.28 mg/dL (0.55-1.02); TOTAL PROTEIN 5.8 g/dL (6.4-8.2)
[2019-09-18] MEDS ORDERED: OXYcodone IR 5MG TABLET ONE ×6 (02:47→21:39)
[2019-09-18] MEDS: OXYcodone IR 5MG TABLET PO PRN ×5 (02:51→20:49)
[2019-09-18] MEDS ORDERED: HEPARIN 5,000 UNITS/ML, 1ML ONE ×2 (03:01→11:46)
[2019-09-18] MEDS: SODIUM CHLORIDE 0.9% 1,000 ML IV SCH (03:52)
[2019-09-18] MEDS: SODIUM CHLORIDE FLUSH 10ML SYR IVF SCH ×2 (03:53→09:00)
[2019-09-18] MEDS: HEPARIN 5,000 UNITS/ML, 1ML SQ SCH ×2 (03:53→12:06)
[2019-09-18 05:48] LABS: BASOPHILS # (AUTO) 0.01 x10^3/uL (0-0.1); BASOPHILS % (AUTO) 0 % (0-1); EOSINOPHILS # (AUTO) 0.17 x10^3/uL (0-0.4); EOSINOPHILS % (AUTO) 2 % (1-7); LYMPHOCYTES # (AUTO) 2.32 x10^3/uL (1-3.4); LYMPHOCYTES % (AUTO) 25 % (22-44); MD NO; MEAN CORPUSCULAR HEMOGLOBIN 30.3 pg (27.0-34.8); MEAN CORPUSCULAR VOLUME 91.8 fL (80-100); MEAN PLATELET VOLUME 7.9 fL (7.4-10.4); MONOCYTES # (AUTO) 0.63 x10^3/uL (0.2-0.8); MONOCYTES % (AUTO) 7 % (2-9); NEUTROPHILS # (AUTO) 6.04 x10^3/uL (1.8-6.8); NEUTROPHILS % (AUTO) 66 % (42-75); PLATELET COUNT 175 x10^3/uL (130-400); RED BLOOD COUNT 2.77 x10^6/uL (3.82-5.3); RED CELL DISTRIBUTION WIDTH 14.4 % (9.6-15.2)
[2019-09-18 06:50] LABS: ALANINE AMINOTRANSFERASE 46 U/L (12-78); ALBUMIN 2.5 g/dL (3.4-5.0); ANION GAP 9 mmol/L (5-15); CALCIUM 7.5 mg/dL (8.5-10.1); CHLORIDE 109 mmol/L (98-107); CREATININE 0.27 mg/dL (0.55-1.02)
[2019-09-18 06:52] LABS: ALKALINE PHOSPHATASE 72 U/L (45-117); BILIRUBIN,TOTAL 0.7 mg/dL (0.2-1.0); TOTAL PROTEIN 5.7 g/dL (6.4-8.2)
[2019-09-18 08:05] VITALS: BP 103/66
[2019-09-18] MEDS: PRENATAL VIT/IRON/FA 1 EACH TABLET PO SCH (09:00)
[2019-09-18] MEDS: IRON SUCROSE COMPLEX 100MG/5ML IV SCH (09:00)
[2019-09-18] MEDS: POTASSIUM CHLORIDE 20 MEQ TAB.ER.PRT PO SCH ×2 (12:06→17:06)
[2019-09-18] MEDS: CEFTRIAXONE PMX 2GM/50ML 50 ML IV SCH (14:10)
[2019-09-18] MEDS ORDERED: FENTANYL PF 100 MCG/2ML ONE ×3 (15:24→22:44)
[2019-09-18] MEDS: FENTANYL PF 100 MCG/2ML IVPush PRN ×3 (15:25→22:51)
[2019-09-18] MEDS ORDERED: FENTANYL PF 100 MCG/2ML IV PRN (15:30)
[2019-09-18 16:31] LABS: INTERNATIONAL NORMALIZED RATIO 0.95 (0.93-1.1)
[2019-09-18] MEDS ORDERED: DOCUSATE 100 MG CAPSULE ONE ×2 (16:41→20:46)
[2019-09-18] MEDS: D5%-LACTATED RINGERS 1,000 ML IV SCH (17:00)
[2019-09-18] MEDS ORDERED: DOCUSATE 100 MG CAPSULE PO PRN (17:00)
[2019-09-18] MEDS ORDERED: D5%-LACTATED RINGERS 1,000 ML IV SCH (17:00)
[2019-09-19] MEDS: D5%-LACTATED RINGERS 1,000 ML IV SCH (02:00)
[2019-09-19] MEDS ORDERED: OXYcodone IR 5MG TABLET ONE ×2 (02:25→19:40)
[2019-09-19] MEDS: OXYcodone IR 5MG TABLET PO PRN ×2 (02:30→19:43)
[2019-09-19] MEDS ORDERED: FENTANYL PF 100 MCG/2ML ONE ×3 (02:58→06:02)
[2019-09-19] MEDS: FENTANYL PF 100 MCG/2ML IVPush PRN ×3 (03:00→06:00)
[2019-09-19] MEDS ORDERED: OXYTOCIN 30U/ 0.9% NaCL 500ML 500 ML ONE ×2 (05:45→08:39)
[2019-09-19 06:00] LABS: BASOPHILS # (AUTO) 0.05 x10^3/uL (0-0.1); BASOPHILS % (AUTO) 0 % (0-1); EOSINOPHILS # (AUTO) 0.32 x10^3/uL (0-0.4); EOSINOPHILS % (AUTO) 2 % (1-7); LYMPHOCYTES # (AUTO) 1.95 x10^3/uL (1-3.4); LYMPHOCYTES % (AUTO) 14 % (22-44); MD SCAN; MEAN CORPUSCULAR HEMOGLOBIN 31.1 pg (27.0-34.8); MEAN CORPUSCULAR HGB CONC 33.4 g/dL (32.4-35.8); MEAN PLATELET VOLUME 8.2 fL (7.4-10.4); MONOCYTES # (AUTO) 0.58 x10^3/uL (0.2-0.8); MONOCYTES % (AUTO) 4 % (2-9); NEUTROPHILS # (AUTO) 10.85 x10^3/uL (1.8-6.8); NEUTROPHILS % (AUTO) 79 % (42-75); PLATELET COUNT 227 x10^3/uL (130-400); RED CELL DISTRIBUTION WIDTH 14.6 % (9.6-15.2)
[2019-09-19 06:14] LABS: ANION GAP 8 mmol/L (5-15); CHLORIDE 108 mmol/L (98-107)
[2019-09-19] MEDS ORDERED: FENTANYL/BUPIV./NS/PF 250 ML EPIDCONT ONE (06:25)
[2019-09-19] MEDS ORDERED: BUPIVACAINE 0.25% ONE (07:00)
[2019-09-19] MEDS ORDERED: OXYTOCIN 30U/ 0.9% NaCL 500ML 500 ML IV SCH (08:01)
[2019-09-19] MEDS ORDERED: MISOPROSTOL 200 MCG TABLET PR PRN (08:30)
[2019-09-19] MEDS ORDERED: METOCLOPRAMIDE 5 MG/ML, 2ML IV PRN (08:30)
[2019-09-19] MEDS ORDERED: OXYcodone/APAP 5/325MG TABLET PO PRN (08:30)
[2019-09-19] MEDS ORDERED: ACETAMINOPHEN 325 MG TABLET PO PRN ×2 (08:30)
[2019-09-19] MEDS ORDERED: ONDANSETRON 2MG/ML, 2ML IV PRN (08:30)
[2019-09-19] MEDS ORDERED: SIMETHICONE 80 MG CHEW TAB PO PRN (08:30)
[2019-09-19] MEDS ORDERED: METHYLERGONOVINE 0.2 MG/ML IM PRN (08:30)
[2019-09-19] MEDS ORDERED: CARBOPROST TROMETHAMINE 250 MCG/ML, 1ML IM PRN (08:30)
[2019-09-19] MEDS ORDERED: LACTATED RINGERS 1,000 ML IV SCH (08:43)
[2019-09-19] MEDS ORDERED: FENTANYL/BUPIV./NS/PF 250 ML EPIDCONT SCH (08:43)
[2019-09-19] MEDS ORDERED: PROMETHAZINE 25 MG/ML, 1ML IV PRN (09:00)
[2019-09-19] MEDS ORDERED: ALBUTEROL SULFATE 2.5 MG/3 ML NPPB PRN (09:00)
[2019-09-19] MEDS ORDERED: MIDAZOLAM 1 MG/ML, 2ML IV PRN (09:00)
[2019-09-19] MEDS ORDERED: HYDROcodone/APAP 7.5-325MG/15ML UDC PO PRN (09:00)
[2019-09-19] MEDS ORDERED: FENTANYL PF 500 MCG, BUPIVACAINE/PF 0.5%, 30ML 62.5 ML in SODIUM CHLORIDE 0.9% 177.5 ML EPIDCONT SCH (09:00)
[2019-09-19] MEDS ORDERED: LACTATED RINGERS 1,000 ML IVBOLUS PRN (09:00)
[2019-09-19] MEDS ORDERED: NALOXONE 0.4 MG/ML, 1ML IVPush PRN (09:00)
[2019-09-19] MEDS ORDERED: hydrALAzine 20 MG/ML, 1ML IV PRN (09:00)
[2019-09-19] MEDS ORDERED: OXYcodone 5 MG/5 ML ORAL.SOL UDC PO PRN (09:00)
[2019-09-19] MEDS ORDERED: ONDANSETRON 2MG/ML, 2ML IVPush PRN (09:00)
[2019-09-19] MEDS ORDERED: MEPERIDINE/PF 25MG/0.5ML IVPush PRN (09:00)
[2019-09-19] MEDS ORDERED: EPHEDRINE 50 MG/ML, 1ML IVPush PRN ×2 (09:00)
[2019-09-19] MEDS ORDERED: FENTANYL PF 100 MCG/2ML IV PRN (09:00)
[2019-09-19] MEDS ORDERED: LABETALOL 5MG/ML, 20ML IV PRN (09:00)
[2019-09-19] MEDS ORDERED: HYDROmorphone 2 MG/ML, 1ML IVPush PRN (09:00)
[2019-09-19] MEDS: PRENATAL VIT/IRON/FA 1 EACH TABLET PO SCH ×2 (10:30→19:43)
[2019-09-19] MEDS ORDERED: IRON SUCROSE COMPLEX 100MG/5ML ONE (11:47)
[2019-09-19] MEDS ORDERED: POTASSIUM CHLORIDE 20 MEQ TAB.ER.PRT PO SCH ×2 (11:56→17:00)
[2019-09-19] MEDS ORDERED: DOCUSATE 100 MG CAPSULE ONE ×2 (11:58→19:41)
[2019-09-19] MEDS: IRON SUCROSE COMPLEX 100MG/5ML IV SCH (12:06)
[2019-09-19] MEDS: DOCUSATE 100 MG CAPSULE PO PRN ×2 (12:06→19:43)
[2019-09-19] MEDS: CEFTRIAXONE PMX 2GM/50ML 50 ML IV SCH (14:14)
[2019-09-19] MEDS ORDERED: PRENATAL VIT/IRON/FA 1 EACH TABLET ONE (19:41)
[2019-09-19] MEDS: SODIUM CHLORIDE FLUSH 10ML SYR IVF SCH ×2 (19:42→21:00)
[2019-09-20] MEDS ORDERED: OXYcodone IR 5MG TABLET ONE ×2 (03:35→09:50)
[2019-09-20] MEDS: OXYcodone IR 5MG TABLET PO PRN ×3 (03:37→23:26)
[2019-09-20 04:49] LABS: MEAN CORPUSCULAR HEMOGLOBIN 30.7 pg (27.0-34.8); MEAN CORPUSCULAR HGB CONC 32.6 g/dL (32.4-35.8); MEAN CORPUSCULAR VOLUME 94.1 fL (80-100); MEAN PLATELET VOLUME 8.1 fL (7.4-10.4); PLATELET COUNT 236 x10^3/uL (130-400); RED CELL DISTRIBUTION WIDTH 14.4 % (9.6-15.2)
[2019-09-20 04:52] LABS: ALBUMIN 2.2 g/dL (3.4-5.0); ANION GAP 7 mmol/L (5-15); CHLORIDE 107 mmol/L (98-107)
[2019-09-20 04:57] LABS: ALANINE AMINOTRANSFERASE 36 U/L (12-78); ALKALINE PHOSPHATASE 76 U/L (45-117); BILIRUBIN,TOTAL 0.9 mg/dL (0.2-1.0); CREATININE 0.35 mg/dL (0.55-1.02); TOTAL PROTEIN 5.7 g/dL (6.4-8.2)
[2019-09-20 05:49] LABS: MD YES
[2019-09-20 05:50] LABS: BAND#(MANUAL) 1.16 x10^3/uL; BANDS%(MANUAL) 7 % (0-7); LYMPH#(MANUAL) 1.82 x10^3/uL (1-3.4); LYMPHS% (MANUAL) 11 % (22-44); MONOS% (MANUAL) 3 % (2-9); SEG#(MANUAL) 13.04 x10^3/uL (1.8-6.8); SEGS% (MANUAL) 79 % (42-75)
[2019-09-20 05:51] LABS: <PLATELET ESTIMATE> ADEQUATE; <PLT MORPHOLOGY> NORMAL PLT MORPH; <RBC MORPHOLOGY> NORMAL
[2019-09-20] MEDS ORDERED: MAGNESIUM SULFATE 4 GM in SODIUM CHLORIDE 0.9% 100 ML IV ONE (07:30)
[2019-09-20] MEDS ORDERED: OMNIPAQUE 350 MG/ML, 100ML BOTTLE ONE (08:11)
[2019-09-20] MEDS: SODIUM CHLORIDE FLUSH 10ML SYR IVF SCH ×3 (08:20→21:45)
[2019-09-20] MEDS: POTASSIUM CHLORIDE 20 MEQ TAB.ER.PRT PO SCH ×2 (08:41→16:11)
[2019-09-20] MEDS: PRENATAL VIT/IRON/FA 1 EACH TABLET PO SCH (09:00)
[2019-09-20 09:11] LABS: CLOSTRIDIUM DIFFICILE ANTIGEN POSITIVE; CLOSTRIDIUM DIFFICILE TOXIN POSITIVE (Negative)
[2019-09-20] MEDS ORDERED: IRON SUCROSE COMPLEX 100MG/5ML ONE (10:28)
[2019-09-20] MEDS ORDERED: IBUPROFEN 600 MG TABLET ONE (13:16)
[2019-09-20] MEDS: VANCOMYCIN 50 MG/ML ORAL SUSP PO SCH ×2 (13:27→20:00)
[2019-09-20] MEDS: IBUPROFEN 600 MG TABLET PO PRN ×2 (13:27→21:45)
[2019-09-20] MEDS: CEFTRIAXONE PMX 2GM/50ML 50 ML IV SCH (13:28)
[2019-09-20 14:48] VITALS: BP 95/63
[2019-09-20 16:44] VITALS: BP 95/62
[2019-09-20 21:55] VITALS: BP 103/66
[2019-09-21] MEDS: VANCOMYCIN 50 MG/ML ORAL SUSP PO SCH ×4 (01:19→19:43)
[2019-09-21 03:00] VITALS: BP 109/73
[2019-09-21 06:25] LABS: MEAN CORPUSCULAR HEMOGLOBIN 30.1 pg (27.0-34.8); MEAN CORPUSCULAR HGB CONC 32.2 g/dL (32.4-35.8); MEAN CORPUSCULAR VOLUME 93.3 fL (80-100); MEAN PLATELET VOLUME 7.7 fL (7.4-10.4); PLATELET COUNT 255 x10^3/uL (130-400); RED BLOOD COUNT 3.38 x10^6/uL (3.82-5.3); RED CELL DISTRIBUTION WIDTH 14.5 % (9.6-15.2)
[2019-09-21 06:32] LABS: CHLORIDE 109 mmol/L (98-107)
[2019-09-21 06:36] LABS: ANION GAP 7 mmol/L (5-15); CREATININE 0.26 mg/dL (0.55-1.02)
[2019-09-21 06:40] LABS: MD YES
[2019-09-21 06:42] LABS: BAND#(MANUAL) 0.77 x10^3/uL; BANDS%(MANUAL) 6 % (0-7); EOS#(MANUAL) 0.13 x10^3/uL (0.0-0.4); EOS% (MANUAL) 1 % (1-7); LYMPH#(MANUAL) 2.32 x10^3/uL (1-3.4); LYMPHS% (MANUAL) 18 % (22-44); MONOS#(MANUAL) 0.52 x10^3/uL (0.3-2.7); MONOS% (MANUAL) 4 % (2-9); MYELOCYTES# (MANUAL) 0.13 x10^3/uL (0-0); MYELOCYTES% (MANUAL) 1 % (0-0); SEG#(MANUAL) 9.03 x10^3/uL (1.8-6.8); SEGS% (MANUAL) 70 % (42-75)
[2019-09-21 06:43] LABS: POLYCHROMASIA 1+
[2019-09-21 06:45] LABS: ANISOCYTOSIS 1+
[2019-09-21 06:46] LABS: <PLATELET ESTIMATE> ADEQUATE; <PLT MORPHOLOGY> NORMAL PLT MORPH
[2019-09-21 08:26] VITALS: BP 103/70
[2019-09-21] MEDS ORDERED: MAGNESIUM SULFATE PMX 2GM/50ML 50 ML IV ONE (08:30)
[2019-09-21] MEDS: OXYcodone IR 5MG TABLET PO PRN (09:21)
[2019-09-21] MEDS: PRENATAL VIT/IRON/FA 1 EACH TABLET PO SCH (09:21)
[2019-09-21] MEDS: SODIUM CHLORIDE FLUSH 10ML SYR IVF SCH ×2 (09:21→20:23)
[2019-09-21] MEDS ORDERED: MIDAZOLAM 1 MG/ML, 5ML ONE (10:12)
[2019-09-21] MEDS ORDERED: FENTANYL PF 100 MCG/2ML ONE ×2 (10:12)
[2019-09-21] MEDS ORDERED: FLUMAZENIL 0.1 MG/1 ML, 5ML ONE (10:12)
[2019-09-21] MEDS ORDERED: NALOXONE 1 MG/ML, 2ML ONE (10:13)
[2019-09-21] MEDS ORDERED: LIDOCAINE 1%, 10ML ONE (10:23)
[2019-09-21] MEDS ORDERED: VISIPAQUE 270 MG/ML, 50ML BOTTLE ONE (12:25)
[2019-09-21 13:10] VITALS: BP 108/72
[2019-09-21] MEDS: CIPROFLOXACIN OPHTH SOLN 0.3%, 5ML EACHEYE SCH (14:32)
[2019-09-21] MEDS: CEFTRIAXONE PMX 2GM/50ML 50 ML IV SCH (14:32)
[2019-09-21] MEDS: OXYcodone/APAP 5/325MG TABLET PO PRN ×2 (14:40→20:23)
[2019-09-21 20:31] VITALS: BP 105/74
[2019-09-21 20:36] VITALS: BP 98/71
[2019-09-22 00:17] VITALS: BP 100/62
[2019-09-22] MEDS: VANCOMYCIN 50 MG/ML ORAL SUSP PO SCH ×4 (00:55→20:05)
[2019-09-22] MEDS: OXYcodone/APAP 5/325MG TABLET PO PRN ×4 (02:42→18:37)
[2019-09-22 05:38] LABS: BASOPHILS # (AUTO) 0.04 x10^3/uL (0-0.1); BASOPHILS % (AUTO) 0 % (0-1); EOSINOPHILS # (AUTO) 0.24 x10^3/uL (0-0.4); EOSINOPHILS % (AUTO) 2 % (1-7); LYMPHOCYTES % (AUTO) 14 % (22-44); MD NO; MEAN CORPUSCULAR HEMOGLOBIN 30.6 pg (27.0-34.8); MEAN CORPUSCULAR HGB CONC 32.2 g/dL (32.4-35.8); MEAN PLATELET VOLUME 7.9 fL (7.4-10.4); MONOCYTES # (AUTO) 0.87 x10^3/uL (0.2-0.8); MONOCYTES % (AUTO) 6 % (2-9); NEUTROPHILS # (AUTO) 10.68 x10^3/uL (1.8-6.8); NEUTROPHILS % (AUTO) 78 % (42-75); PLATELET COUNT 308 x10^3/uL (130-400); RED BLOOD COUNT 3.45 x10^6/uL (3.82-5.3); RED CELL DISTRIBUTION WIDTH 14.8 % (9.6-15.2)
[2019-09-22 05:41] LABS: ALANINE AMINOTRANSFERASE 27 U/L (12-78); ALBUMIN 2.5 g/dL (3.4-5.0); ANION GAP 6 mmol/L (5-15); CALCIUM 7.8 mg/dL (8.5-10.1); CHLORIDE 107 mmol/L (98-107); CREATININE 0.32 mg/dL (0.55-1.02)
[2019-09-22 05:44] LABS: ALKALINE PHOSPHATASE 73 U/L (45-117); BILIRUBIN,TOTAL 0.4 mg/dL (0.2-1.0); TOTAL PROTEIN 6.3 g/dL (6.4-8.2)
[2019-09-22 06:55] VITALS: BP 107/73
[2019-09-22] MEDS: PRENATAL VIT/IRON/FA 1 EACH TABLET PO SCH (08:49)
[2019-09-22] MEDS: SODIUM CHLORIDE FLUSH 10ML SYR IVF SCH ×2 (08:50→20:05)
[2019-09-22] MEDS: CIPROFLOXACIN OPHTH SOLN 0.3%, 5ML EACHEYE SCH (08:50)
[2019-09-22 12:05] VITALS: BP 96/65
[2019-09-22] MEDS: CEFTRIAXONE PMX 2GM/50ML 50 ML IV SCH (14:30)
[2019-09-22 20:37] VITALS: BP 97/63
[2019-09-23 00:06] VITALS: BP 103/69
[2019-09-23] MEDS: VANCOMYCIN 50 MG/ML ORAL SUSP PO SCH ×4 (01:44→20:06)
[2019-09-23] MEDS: OXYcodone/APAP 5/325MG TABLET PO PRN ×3 (02:53→21:42)
[2019-09-23 06:35] LABS: BASOPHILS # (AUTO) 0.02 x10^3/uL (0-0.1); BASOPHILS % (AUTO) 0 % (0-1); EOSINOPHILS # (AUTO) 0.21 x10^3/uL (0-0.4); EOSINOPHILS % (AUTO) 2 % (1-7); LYMPHOCYTES # (AUTO) 2.16 x10^3/uL (1-3.4); LYMPHOCYTES % (AUTO) 21 % (22-44); MD NO; MEAN CORPUSCULAR HEMOGLOBIN 30.5 pg (27.0-34.8); MEAN CORPUSCULAR HGB CONC 32.5 g/dL (32.4-35.8); MEAN CORPUSCULAR VOLUME 93.7 fL (80-100); MEAN PLATELET VOLUME 7.4 fL (7.4-10.4); MONOCYTES # (AUTO) 0.94 x10^3/uL (0.2-0.8); MONOCYTES % (AUTO) 9 % (2-9); NEUTROPHILS # (AUTO) 7.21 x10^3/uL (1.8-6.8); NEUTROPHILS % (AUTO) 68 % (42-75); PLATELET COUNT 351 x10^3/uL (130-400); RED BLOOD COUNT 3.65 x10^6/uL (3.82-5.3); RED CELL DISTRIBUTION WIDTH 15.2 % (9.6-15.2)
[2019-09-23 06:46] LABS: ANION GAP 6 mmol/L (5-15); CALCIUM 8.4 mg/dL (8.5-10.1); CHLORIDE 105 mmol/L (98-107); CREATININE 0.43 mg/dL (0.55-1.02)
[2019-09-23 08:28] VITALS: BP 94/65
[2019-09-23] MEDS ORDERED: MAGNESIUM SULFATE 3 GM in SODIUM CHLORIDE 0.9% 100 ML IV ONE (09:00)
[2019-09-23] MEDS: SODIUM CHLORIDE FLUSH 10ML SYR IVF SCH ×2 (09:00→20:06)
[2019-09-23] MEDS: HEPARIN 5,000 UNITS/ML, 1ML SQ SCH ×2 (09:59→16:51)
[2019-09-23] MEDS: PRENATAL VIT/IRON/FA 1 EACH TABLET PO SCH (10:00)
[2019-09-23] MEDS: CIPROFLOXACIN OPHTH SOLN 0.3%, 5ML EACHEYE SCH (10:00)
[2019-09-23 12:44] VITALS: BP 98/66
[2019-09-23] MEDS: CEFTRIAXONE PMX 2GM/50ML 50 ML IV SCH (14:39)
[2019-09-23 19:08] VITALS: BP 93/61
[2019-09-24] MEDS: HEPARIN 5,000 UNITS/ML, 1ML SQ SCH ×2 (00:38→09:09)
[2019-09-24] MEDS: VANCOMYCIN 50 MG/ML ORAL SUSP PO SCH ×3 (01:51→13:12)
[2019-09-24 01:53] VITALS: BP 96/62
[2019-09-24] MEDS: OXYcodone/APAP 5/325MG TABLET PO PRN (04:36)
[2019-09-24 05:02] LABS: BASOPHILS # (AUTO) 0.05 x10^3/uL (0-0.1); BASOPHILS % (AUTO) 1 % (0-1); EOSINOPHILS # (AUTO) 0.23 x10^3/uL (0-0.4); EOSINOPHILS % (AUTO) 3 % (1-7); LYMPHOCYTES # (AUTO) 2.91 x10^3/uL (1-3.4); LYMPHOCYTES % (AUTO) 33 % (22-44); MD NO; MEAN CORPUSCULAR HEMOGLOBIN 30.2 pg (27.0-34.8); MEAN CORPUSCULAR VOLUME 94.4 fL (80-100); MEAN PLATELET VOLUME 7.7 fL (7.4-10.4); MONOCYTES # (AUTO) 0.93 x10^3/uL (0.2-0.8); MONOCYTES % (AUTO) 11 % (2-9); NEUTROPHILS # (AUTO) 4.75 x10^3/uL (1.8-6.8); NEUTROPHILS % (AUTO) 53 % (42-75); PLATELET COUNT 391 x10^3/uL (130-400); RED BLOOD COUNT 3.66 x10^6/uL (3.82-5.3); RED CELL DISTRIBUTION WIDTH 15.6 % (9.6-15.2)
[2019-09-24 05:10] LABS: ANION GAP 6 mmol/L (5-15); CALCIUM 8.5 mg/dL (8.5-10.1); CHLORIDE 105 mmol/L (98-107)
[2019-09-24 05:20] LABS: CREATININE 0.47 mg/dL (0.55-1.02)
[2019-09-24 05:36] LABS: HCT (SEDRATE) 34.6 % (34.6-47.8)
[2019-09-24 07:03] VITALS: BP 94/62
[2019-09-24] MEDS: SODIUM CHLORIDE FLUSH 10ML SYR IVF SCH (09:00)
[2019-09-24] MEDS: PRENATAL VIT/IRON/FA 1 EACH TABLET PO SCH (09:04)
[2019-09-24] MEDS: CIPROFLOXACIN OPHTH SOLN 0.3%, 5ML EACHEYE SCH (09:08)
[2019-09-24] MEDS ORDERED: CIPR2.5D EACHEYE (10:55)
[2019-09-24] MEDS ORDERED: ACET325T26 PO (10:55)
[2019-09-24] MEDS ORDERED: VANC1VIA3 PO (10:57)
== END 2019-09-24 13:30 | disposition home or self-care (01) | DRG 560 ==
LOC: ED 21:50 → EDIP 22:26 → INTOOBSV 22:26 → OBSVTOIN 22:26 → LDIP 23:27 → CCU 09-13 11:33 → LDIP 09-17 12:38 → 4WST 09-20 14:29
PROVIDERS: ADMIT Internal Medicine; ATTEND Internal Medicine
PROC: 0T9330Z Drainage of Right Kidney Pelvis with Drainage Device, Percutaneous Approach (ICD-10-PCS; 2019-09-13)
PROC: 5A1945Z Respiratory Ventilation, 24-96 Consecutive Hours (ICD-10-PCS; 2019-09-13)
PROC: 0BH17EZ Insertion of Endotracheal Airway into Trachea, Via Natural or Artificial Opening (ICD-10-PCS; 2019-09-13)
PROC: 02HV33Z Insertion of Infusion Device into Superior Vena Cava, Percutaneous Approach (ICD-10-PCS; 2019-09-13)
PROC: B548ZZA Ultrasonography of Superior Vena Cava, Guidance (ICD-10-PCS; 2019-09-13)
PROC: 03HY32Z Insertion of Monitoring Device into Upper Artery, Percutaneous Approach (ICD-10-PCS; 2019-09-14)
PROC: 30233N1 Transfusion of Nonautologous Red Blood Cells into Peripheral Vein, Percutaneous Approach (ICD-10-PCS; 2019-09-15)
PROC: 10E0XZZ Delivery of Products of Conception, External Approach (ICD-10-PCS; principal; 2019-09-19)
PROC: 3E0R3BZ Introduction of Anesthetic Agent into Spinal Canal, Percutaneous Approach (ICD-10-PCS; 2019-09-19)
PROC: 00HU33Z Insertion of Infusion Device into Spinal Canal, Percutaneous Approach (ICD-10-PCS; 2019-09-19)
PROC: 02HV33Z Insertion of Infusion Device into Superior Vena Cava, Percutaneous Approach (ICD-10-PCS; 2019-09-20)
PROC: B5181ZA Fluoroscopy of Superior Vena Cava using Low Osmolar Contrast, Guidance (ICD-10-PCS; 2019-09-20)
PROC: B548ZZA Ultrasonography of Superior Vena Cava, Guidance (ICD-10-PCS; 2019-09-20)
PROC: 0T763DZ Dilation of Right Ureter with Intraluminal Device, Percutaneous Approach (ICD-10-PCS; 2019-09-21)
DX: O60.14X0 Preterm labor third trimester with preterm delivery third trimester, not applicable or unspecified (principal); A41.59 Other Gram-negative sepsis; R65.21 Severe sepsis with septic shock; J81.0 Acute pulmonary edema; E43 Unspecified severe protein-calorie malnutrition; J96.01 Acute respiratory failure with hypoxia; J81.1 Chronic pulmonary edema; A04.72 Enterocolitis due to Clostridium difficile, not specified as recurrent; K85.90 Acute pancreatitis without necrosis or infection, unspecified; J18.9 Pneumonia, unspecified organism; Z99.11 Dependence on respirator [ventilator] status; Z37.0 Single live birth; J90 Pleural effusion, not elsewhere classified; D62 Acute posthemorrhagic anemia; E83.42 Hypomagnesemia; I24.8 Other forms of acute ischemic heart disease; E83.51 Hypocalcemia; E87.70 Fluid overload, unspecified; Z3A.30 30 weeks gestation of pregnancy; D72.819 Decreased white blood cell count, unspecified; E87.6 Hypokalemia; F32.9 Major depressive disorder, single episode, unspecified; H10.32 Unspecified acute conjunctivitis, left eye; K76.0 Fatty (change of) liver, not elsewhere classified; N13.6 Pyonephrosis; N17.9 Acute kidney failure, unspecified; O25.2 Malnutrition in childbirth; O26.62 Liver and biliary tract disorders in childbirth; O40.3XX0 Polyhydramnios, third trimester, not applicable or unspecified; O76 Abnormality in fetal heart rate and rhythm complicating labor and delivery; O99.02 Anemia complicating childbirth; O99.12 Other diseases of the blood and blood-forming organs and certain disorders involving the immune mechanism complicating childbirth; O99.284 Endocrine, nutritional and metabolic diseases complicating childbirth; O99.344 Other mental disorders complicating childbirth; O99.52 Diseases of the respiratory system complicating childbirth; O99.62 Diseases of the digestive system complicating childbirth; Z80.0 Family history of malignant neoplasm of digestive organs; Z51.5 Encounter for palliative care; Z80.6 Family history of leukemia; Z87.891 Personal history of nicotine dependence; Z93.6 Other artificial openings of urinary tract status; N20.2 Calculus of kidney with calculus of ureter; N85.2 Hypertrophy of uterus; O26.833 Pregnancy related renal disease, third trimester; D63.8 Anemia in other chronic diseases classified elsewhere
CPT/HCPCS: J3490 ×2; 36415; 36573; 36600; 50432; 50693; 71045; 71046; 74177; 74181; 76700; 76705; 76770; 76815; 76857; 76937; 80048; 80053; 80076; 81001; 82105; 82330; 82533; 82677; 82728; 82803; 82962; 83540; 83550; 83605; 83690; 83735; 84100; 84132; 84145; 84478; 84484; 84702; 85014; 85018; 85025; 85610; 85651; 85730; 86022; 86140; 86336; 86592; 86762; 86803; 86850; 86900; 86923; 87040; 87070; 87075; 87077; 87081; 87086; 87186; 87205; 87324; 87340; 87389; 87400; 88305; 93005; 93306; 93970; 94002; 94003; 94640; 96365; 96368; 96375; 96376; 99156; 99157; C1894; G0378; J0696; J0702; J1644; J1756; J2185; J2250; J2405; J2543; J2704; J3010; J3370; J3475; J3480; J7070; J7620; P9047; Q9966; Q9967; C1729; C1751; C1769; C2625; J1250; J1720; J1940; J2270; J2310; J2370; J2590; J7030; J7040; J7050; J7120; J7121; P9016

== ENCOUNTER 2019-10-01 16:06 | Emergency (ER) | payer SELFPAY ==
[~2019-10-01] VITALS: Ht 162.6 cm; Wt 60.0 kg
[~2019-10-01 16:06] MED LIST changes: +ACET325T26 PO; +CIPR2.5D EACHEYE; +VANC1VIA3 PO
--- NOTE | 2019-10-01 16:24 | NUR ---
ASSUMED CARE OF PATIENT. PATIENT WAS A CODE 250 FROM THE NICU. PT'S BABY IS IN THE NICU. PT IS GETTING IV ABX AN OUTPATIENT AND BECAME DIZZY AND PALE. EKG DONE. VS STABLE. SEED BUYER ON. WILL CONTINUE TO MONITOR.
[2019-10-01 17:01] LABS: BASOPHILS # (AUTO) 0.12 x10^3/uL (0-0.1); BASOPHILS % (AUTO) 2 % (0-1); EOSINOPHILS # (AUTO) 0.17 x10^3/uL (0-0.4); EOSINOPHILS % (AUTO) 2 % (1-7); LYMPHOCYTES # (AUTO) 3.37 x10^3/uL (1-3.4); LYMPHOCYTES % (AUTO) 47 % (22-44); MD NO; MEAN CORPUSCULAR HEMOGLOBIN 30.6 pg (27.0-34.8); MEAN CORPUSCULAR HGB CONC 32.5 g/dL (32.4-35.8); MEAN CORPUSCULAR VOLUME 94.2 fL (80-100); MEAN PLATELET VOLUME 7.1 fL (7.4-10.4); MONOCYTES # (AUTO) 0.36 x10^3/uL (0.2-0.8); MONOCYTES % (AUTO) 5 % (2-9); NEUTROPHILS # (AUTO) 3.11 x10^3/uL (1.8-6.8); NEUTROPHILS % (AUTO) 44 % (42-75); PLATELET COUNT 490 x10^3/uL (130-400); RED BLOOD COUNT 4.12 x10^6/uL (3.82-5.3); RED CELL DISTRIBUTION WIDTH 15.3 % (9.6-15.2)
[2019-10-01 17:15] LABS: ALANINE AMINOTRANSFERASE 30 U/L (12-78); ALBUMIN 3.5 g/dL (3.4-5.0); ANION GAP 8 mmol/L (5-15); CALCIUM 8.8 mg/dL (8.5-10.1); CHLORIDE 105 mmol/L (98-107)
[2019-10-01 17:19] LABS: ALKALINE PHOSPHATASE 77 U/L (45-117); BILIRUBIN,TOTAL 0.4 mg/dL (0.2-1.0); CREATININE 0.57 mg/dL (0.55-1.02); TOTAL PROTEIN 8.6 g/dL (6.4-8.2); TROPONIN I < 0.015 ng/mL (0.000-0.045)
[2019-10-01] MEDS ORDERED: DEXTROSE 10%, 250ML IV ONE (17:30)
--- NOTE | 2019-10-01 17:34 | NUR ---
PT'S BLOOD SUGAR WAS 57. PT GIVEN SOME OJ PER DR BROWN AND D10 STARTED. VS STABLE. CALL [facility] PL[facility]. WILL COTNINUE TO MONITOR.
--- NOTE | 2019-10-01 18:00 | NUR ---
PT AMBULATED TO BATHROOM. PT NOW RESTING IN ROOM. VS STABLE. WILL CONTINUE TO MONITOR.
[2019-10-01 18:42] VITALS: BP 97/56
--- NOTE | 2019-10-01 18:43 | NUR ---
PT FSBS IS 74. DR BROWN AWARE. PT GIVEN A TURKEY SANDWICH PER DR BROWN. WILL CONTINUE TO MONITOR.
--- NOTE | 2019-10-01 18:53 | NUR ---
REPORT OF PT FROM KAREN MAURER AND ASSUMING CARE OF PT AT THIS TIME.
--- NOTE | 2019-10-01 19:00 | NUR ---
REPORT GIVEN TO KAREN AGUDELO. RN AWARE OF FSBS. PT EATING TURKEY SANDWICH IN ROOM.
--- NOTE | 2019-10-01 20:02 | NUR ---
PT RESTING IN [facility] AT THIS TIME; BETI. CALL LIGHT IS WITHIN REACH. PT DENIES ANY NEEDS AT THIS TIME.
--- NOTE | 2019-10-01 22:17 | NUR ---
PT D/C WITH D/C SUMMARY AND DENIES ANY OTHER NEEDS PERTAINING TO THIS VISIT. PT AMBULATES TO REGISTRATION DESK WITH STEADY GAIT FOR D/C HOME. ALL QUESTIONS ANSWERED. PT ACCOMPANIED BY FAMILY FOR D/C HOME.
== END 2019-10-01 22:30 | disposition home or self-care (01) ==
LOC: ED 22:05
DX: R55 Syncope and collapse (principal); E16.2 Hypoglycemia, unspecified
CPT/HCPCS: 36415; 71045; 80053; 82962; 84484; 85025; 93005; 96374

== ENCOUNTER 2019-10-11 12:38 | Day surgery (SDC) | payer MEDICAID, OTHER ==
[~2019-10-11] VITALS: Ht 162.6 cm; Wt 68.2 kg
[2019-10-11] MEDS ORDERED: FENTANYL PF 100 MCG/2ML ONE ×2 (13:34→19:02)
[2019-10-11] MEDS ORDERED: DEXAMETHASONE 4 MG/ML, 1ML ONE ×4 (13:34→17:06)
[2019-10-11] MEDS ORDERED: MIDAZOLAM 1 MG/ML, 2ML ONE (13:34)
[2019-10-11] MEDS ORDERED: PROPOFOL 10 MG/ML, 20ML ONE ×2 (13:34→17:04)
[2019-10-11] MEDS ORDERED: ONDANSETRON 2MG/ML, 2ML ONE ×2 (13:34→17:06)
[2019-10-11] MEDS ORDERED: LIDOCAINE-MPF 2% ,5ML ONE (13:34)
[2019-10-11] MEDS ORDERED: ROCURONIUM 10MG/ML,5ML ONE ×2 (13:34→17:04)
[2019-10-11 13:48] VITALS: BP 103/71
[2019-10-11 13:48] LABS: MICROSCOPIC INDICATED
[2019-10-11] MEDS ORDERED: NONE PER PT (13:48)
[2019-10-11 13:49] LABS: CULTURE INDICATED? YES
[2019-10-11] MEDS ORDERED: LACTATED RINGERS 1,000 ML IV SCH (14:00)
[2019-10-11] MEDS ORDERED: NEOSTIGMINE 1 MG/ML, 10ML ONE (17:05)
[2019-10-11] MEDS ORDERED: GLYCOPYRROLATE 0.2MG/1ML, 5ML ONE (17:05)
[2019-10-11] MEDS ORDERED: KETOROLAC 30 MG/1 ML ONE (17:06)
[2019-10-11] MEDS ORDERED: MEPERIDINE/PF 25MG/ML,1ML IVPush PRN (17:30)
[2019-10-11] MEDS ORDERED: FENTANYL PF 100 MCG/2ML IV PRN (17:30)
[2019-10-11] MEDS ORDERED: HALOPERIDOL 5 MG/ML IV PRN (17:30)
[2019-10-11] MEDS ORDERED: OXYcodone 5 MG/5 ML ORAL.SOL UDC PO PRN (17:30)
[2019-10-11] MEDS ORDERED: MORPHINE SULFATE 4 MG/ML, 1ML IVPush PRN (17:30)
[2019-10-11] MEDS ORDERED: HYDROmorphone 2 MG/ML, 1ML IVPush PRN (17:30)
[2019-10-11] MEDS ORDERED: PROMETHAZINE 25 MG/ML, 1ML IV PRN (17:30)
[2019-10-11] MEDS ORDERED: CEFOTETAN PMX 2GM/50ML 50 ML ONE (17:56)
[2019-10-11] MEDS ORDERED: OXYcodone/APAP 5/325MG TABLET PO PRN (19:00)
[2019-10-11] MEDS ORDERED: ONDANSETRON 2MG/ML, 2ML IV PRN (19:00)
[2019-10-11] MEDS ORDERED: OXYcodone 5 MG/5 ML ORAL.SOL UDC ONE (19:02)
[2019-10-11 20:30] VITALS: BP 99/64
== END 2019-10-11 22:52 | disposition home or self-care (01) ==
LOC: OUT 12:38 → 4NE 19:00 → OUT 22:52
PROVIDERS: ATTEND Urology
DX: N20.1 Calculus of ureter (principal); Z46.6 Encounter for fitting and adjustment of urinary device; Z93.6 Other artificial openings of urinary tract status
CPT/HCPCS: 52353; 81001; 81025; 82360; 87086; 88300; J1100; J1885; J2250; J2405; J2704; J2710; J3010; J3490; J7120; 76000; G0378

== ENCOUNTER 2020-01-10 21:03 | Emergency (ER) | payer MEDICAID ==
[~2020-01-10] VITALS: Ht 162.6 cm; Wt 64.0 kg
[~2020-01-10 21:03] MED LIST changes: +NONE PER PT
--- NOTE | 2020-01-10 21:37 | NUR ---
Pt alert and resting on gurney. Pt reports taking tylenol around 2030 in SI attempt. Pt reports previous attempts. Pt reports family stressors and "not wanting to do it anymore". Pt also reports increased personal stress last year -kidney stone, and giving in September. Pt denies substance abuse or intake of any other substances. Pt reports she has not been seen by a mental health provider because her family is not supportive. No pysch dx. Pt is in gown. Pt urine collected. Pt on full monitors.
--- NOTE | 2020-01-10 21:46 | NUR ---
Pt friend, Rufina, can be called at [phone]. Sitter outside of room.
[2020-01-10 22:19] LABS: BASOPHILS # (AUTO) 0.05 x10^3/uL (0-0.1); BASOPHILS % (AUTO) 1 % (0-1); EOSINOPHILS # (AUTO) 0.07 x10^3/uL (0-0.4); EOSINOPHILS % (AUTO) 1 % (1-7); LYMPHOCYTES # (AUTO) 3.78 x10^3/uL (1-3.4); LYMPHOCYTES % (AUTO) 36 % (22-44); MD NO; MEAN CORPUSCULAR HEMOGLOBIN 31.6 pg (27.0-34.8); MEAN CORPUSCULAR HGB CONC 33.3 g/dL (32.4-35.8); MEAN PLATELET VOLUME 7.1 fL (7.4-10.4); MONOCYTES # (AUTO) 0.58 x10^3/uL (0.2-0.8); MONOCYTES % (AUTO) 6 % (2-9); NEUTROPHILS # (AUTO) 5.96 x10^3/uL (1.8-6.8); NEUTROPHILS % (AUTO) 57 % (42-75); PLATELET COUNT 315 x10^3/uL (130-400); RED BLOOD COUNT 3.93 x10^6/uL (3.82-5.3); RED CELL DISTRIBUTION WIDTH 12.8 % (9.6-15.2)
[2020-01-10 22:30] LABS: ALBUMIN 3.5 g/dL (3.4-5.0); ANION GAP 6 mmol/L (5-15); CALCIUM 8.6 mg/dL (8.5-10.1); CHLORIDE 107 mmol/L (98-107)
[2020-01-10 22:35] LABS: ALANINE AMINOTRANSFERASE 44 U/L (12-78); ALKALINE PHOSPHATASE 101 U/L (45-117); BILIRUBIN,TOTAL 0.2 mg/dL (0.2-1.0); CREATININE 0.57 mg/dL (0.55-1.02); TOTAL PROTEIN 7.5 g/dL (6.4-8.2)
[2020-01-10 22:43] LABS: AMPHETAMINE SCREEN, URINE Negative (Negative); BARBITURATE SCREEN, URINE Negative (Negative); BENZODIAZEPINE SCREEN, URINE Negative (Negative); CANNABINOID SCREEN, URINE Negative (Negative); COCAINE SCREEN, URINE Negative (Negative); METHADONE SCREEN, URINE Negative (Negative); OPIATE SCREEN, URINE Negative (Negative)
[2020-01-10 22:49] LABS: SALICYLATE LEVEL < 1.7 mg/dL (2.8-20.0)
--- NOTE | 2020-01-10 22:50 | NUR ---
Pt alert and resting on gurney. Monitors intact. Pt remains in view of sitter.
[2020-01-10 23:10] VITALS: BP 100/56
--- NOTE | 2020-01-11 00:07 | NUR ---
Spoke with MD. Pt will be placed on legal hold. Pt items secured and labeled. Pt remains on monitors and with sitter within view. Pt aware of plan.
--- NOTE | 2020-01-11 00:09 | NUR ---
Meal trays ordered.
--- NOTE | 2020-01-11 01:04 | NUR ---
break rn: pt sitting up watching tv, nad, denies needs, sitter at doorway for continous monitoring
--- NOTE | 2020-01-11 02:08 | NUR ---
DONAVON SOLER SUP ON U PT WAS DENIED DUE TO TYLENOL
--- NOTE | 2020-01-11 02:21 | NUR ---
REFERRAL FAXED TO [facility], [facility], AND [facility]
--- NOTE | 2020-01-11 02:23 | NUR ---
Per admitting, pt has Medicaid HPN. Unable to admit to 3E. ER notified.
--- NOTE | 2020-01-11 02:25 | NUR ---
Pt moved to hospital bed. Pt with two episodes of emesis. MD notified. Order received.
[2020-01-11] MEDS ORDERED: ONDANSETRON 2MG/ML, 2ML ONE (02:27)
[2020-01-11] MEDS ORDERED: ONDANSETRON 2MG/ML, 2ML IVPush ONE (02:30)
--- NOTE | 2020-01-11 02:42 | NUR ---
PIV placed. Zofran given. VS retaken. Pt remains in view of sitter.
--- NOTE | 2020-01-11 02:48 | NUR ---
Report given to KAREN Link at [facility]
--- NOTE | 2020-01-11 03:21 | NUR ---
Pt reports improvement after zofran admin. VSS. Boyfriend at bedside for visit. Pt remains in view of sitter.
--- NOTE | 2020-01-11 04:05 | NUR ---
At time of transfer, pt alert and oriented. PIV removed. VSS. Report given to [facility] paramedics. Pt ambulated out of ER with anthropology and archeology instructor. Belongings given.
== END 2020-01-11 04:09 ==
LOC: ED 01-11 02:26
DX: T39.1X1A Poisoning by 4-Aminophenol derivatives, accidental (unintentional), initial encounter (principal); Y92.89 Other specified places as the place of occurrence of the external cause; R11.0 Nausea; R45.851 Suicidal ideations
CPT/HCPCS: 36415; 80053; 80307; 84703; 85025; 93005; 96374; 99284; J2405

== ENCOUNTER 2020-05-27 23:55 | Emergency (ER) | payer OTHER, MEDICAID ==
[~2020-05-27] VITALS: Ht 162.6 cm; Wt 65.9 kg
[2020-05-28] MEDS ORDERED: LORazepam 2 MG/ML, 1ML IVPush ONE (00:30)
[2020-05-28] MEDS ORDERED: LORazepam 2 MG/ML, 1ML ONE (00:31)
[2020-05-28 00:37] LABS: BASOPHILS # (AUTO) 0.04 x10^3/uL (0-0.1); BASOPHILS % (AUTO) 0 % (0-1); EOSINOPHILS # (AUTO) 0.08 x10^3/uL (0-0.4); EOSINOPHILS % (AUTO) 1 % (1-7); LYMPHOCYTES # (AUTO) 2.59 x10^3/uL (1-3.4); LYMPHOCYTES % (AUTO) 19 % (22-44); MD NO; MEAN CORPUSCULAR HGB CONC 33.5 g/dL (32.4-35.8); MEAN CORPUSCULAR VOLUME 92.5 fL (80-100); MEAN PLATELET VOLUME 7.7 fL (7.4-10.4); MONOCYTES # (AUTO) 0.54 x10^3/uL (0.2-0.8); MONOCYTES % (AUTO) 4 % (2-9); NEUTROPHILS % (AUTO) 76 % (42-75); PLATELET COUNT 340 x10^3/uL (130-400); RED BLOOD COUNT 4.28 x10^6/uL (3.82-5.3)
[2020-05-28 00:42] LABS: MICROSCOPIC AUTO
[2020-05-28 00:50] LABS: ALANINE AMINOTRANSFERASE 60 U/L (12-78); ALBUMIN 4.2 g/dL (3.4-5.0); ANION GAP 8 mmol/L (5-15); CALCIUM 9.1 mg/dL (8.5-10.1); CHLORIDE 108 mmol/L (98-107)
[2020-05-28 00:55] LABS: ALKALINE PHOSPHATASE 108 U/L (45-117); BILIRUBIN,TOTAL 0.2 mg/dL (0.2-1.0); TOTAL PROTEIN 8.4 g/dL (6.4-8.2)
[2020-05-28 01:33] VITALS: BP 110/71
== END 2020-05-28 01:36 ==
LOC: ED 05-28 00:31
DX: N30.00 Acute cystitis without hematuria (principal); F41.1 Generalized anxiety disorder; R06.4 Hyperventilation; R10.84 Generalized abdominal pain; R94.31 Abnormal electrocardiogram [ECG] [EKG]; R11.0 Nausea
CPT/HCPCS: 36415; 80053; 81001; 83690; 84703; 85025; 87086; 93005; 96374; 99284; J2060; 96372

== ENCOUNTER 2020-06-25 00:41 | Emergency (ER) | payer OTHER, MEDICAID ==
[~2020-06-25] VITALS: Ht 165.1 cm; Wt 82.6 kg
--- NOTE | 2020-06-25 00:49 | NUR ---
this tech did ekg
[2020-06-25] MEDS ORDERED: ONDANSETRON 2MG/ML, 2ML IVPush ONE (01:00)
[2020-06-25] MEDS ORDERED: MORPHINE SULFATE 4 MG/ML, 1ML IVPush PRN (01:00)
[2020-06-25] MEDS ORDERED: SODIUM CHLORIDE FLUSH 10ML SYR IVF ONE (01:00)
[2020-06-25] MEDS ORDERED: ONDANSETRON 2MG/ML, 2ML ONE (01:21)
[2020-06-25] MEDS ORDERED: MORPHINE SULFATE 4 MG/ML, 1ML ONE (01:21)
[2020-06-25 01:26] LABS: BASOPHILS # (AUTO) 0.03 x10^3/uL (0-0.1); BASOPHILS % (AUTO) 0 % (0-1); EOSINOPHILS % (AUTO) 1 % (1-7); LYMPHOCYTES # (AUTO) 2.61 x10^3/uL (1-3.4); LYMPHOCYTES % (AUTO) 25 % (22-44); MD NO; MEAN CORPUSCULAR HEMOGLOBIN 30.6 pg (27.0-34.8); MEAN CORPUSCULAR HGB CONC 33.4 g/dL (32.4-35.8); MEAN CORPUSCULAR VOLUME 91.8 fL (80-100); MEAN PLATELET VOLUME 7.5 fL (7.4-10.4); MONOCYTES # (AUTO) 0.67 x10^3/uL (0.2-0.8); MONOCYTES % (AUTO) 7 % (2-9); NEUTROPHILS # (AUTO) 6.87 x10^3/uL (1.8-6.8); NEUTROPHILS % (AUTO) 67 % (42-75); PLATELET COUNT 354 x10^3/uL (130-400); RED BLOOD COUNT 4.22 x10^6/uL (3.82-5.3); RED CELL DISTRIBUTION WIDTH 12.8 % (9.6-15.2)
[2020-06-25 01:33] VITALS: BP 102/62
--- NOTE | 2020-06-25 01:35 | NUR ---
SUMMARY NOTE: PT. BIB EMS FROM WORK FOR C/O DIFFUSE ABD PAIN ALL DAY TODAY; DENIES N/V/D. PT. REPORTS SHE HAS AN IUD IN PLACE. PT. ALSO C/O SOB AND CHEST PRESSURE X 6 DAYS. EKG DONE ON ARRIVAL. DR. LANGFORD IN FOR EVAL AND TO DISCUSS POC. CARDIAC, SPO2, AND B/P MONITORS PLACED. X-RAY COMPLETED. IV ESTABLISHED; LABS DRAWN. PT. WAS ABLE TO AMBULATE TO BR WITH STEADY GAIT FOR UA; SENT TO LAB. PT. MEDICATED PER JAN. DENIES OTHER NEEDS AT THIS TIME. ALL SAFEY MEASURES OSBERVED.
[2020-06-25 01:36] LABS: ALBUMIN 3.6 g/dL (3.4-5.0); ANION GAP 8 mmol/L (5-15); CALCIUM 8.6 mg/dL (8.5-10.1); CHLORIDE 107 mmol/L (98-107)
[2020-06-25 01:42] LABS: ALANINE AMINOTRANSFERASE 53 U/L (12-78); ALKALINE PHOSPHATASE 100 U/L (45-117); BILIRUBIN,TOTAL 0.3 mg/dL (0.2-1.0); CREATININE 0.73 mg/dL (0.55-1.02); TROPONIN I < 0.015 ng/mL (0.000-0.045)
[2020-06-25 01:51] LABS: MICROSCOPIC AUTO
== END 2020-06-25 02:25 | disposition home or self-care (01) ==
LOC: ED 02:22
DX: R10.84 Generalized abdominal pain (principal); R06.00 Dyspnea, unspecified; R07.89 Other chest pain; J45.909 Unspecified asthma, uncomplicated; R10.9 Unspecified abdominal pain
CPT/HCPCS: 36415; 71045; 80053; 81001; 83690; 83880; 84484; 84703; 85025; 87086; 93005; 96374; 96375; 99285; J2270; J2405

== ENCOUNTER 2020-06-28 09:00 | Emergency (ER) | payer OTHER, MEDICAID ==
[~2020-06-28] VITALS: Ht 162.6 cm; Wt 83.6 kg
--- NOTE | 2020-06-28 09:28 | NUR ---
PT ARRIVED TO THE ROOM AMBULATORY C/O COUGH AND GENERAL WEAKNESS WITH LOSS OF TASTE AND SMELL FOR SEVERAL DAYS WITH A FEVER TEMP 100.4 NOTED IN THE ROOM AFTER PLACING PT ON MONITOR PT DOES APPEAR TO HAVE GENERAL WEAKNESS AND NO COUGH NOTED
[2020-06-28] MEDS ORDERED: ONDANSETRON ODT 4 MG ONE (09:46)
[2020-06-28] MEDS ORDERED: ONDANSETRON ODT 4 MG PO ONE (10:00)
[2020-06-28 10:18] VITALS: BP 112/65
== END 2020-06-28 10:46 | disposition home or self-care (01) ==
LOC: ED 10:30
DX: U07.1 COVID-19 (principal); B34.9 Viral infection, unspecified; J45.909 Unspecified asthma, uncomplicated
CPT/HCPCS: 36415; 87635; 93005; 99284; Q0162; 99285

== ENCOUNTER 2020-10-11 20:10 | Inpatient (IN) | payer OTHER, MEDICAID ==
[~2020-10-11] VITALS: Ht 162.6 cm; Wt 82.7 kg
[~2020-10-11 20:10] MED LIST changes: -CIPR2.5D EACHEYE; +CIPR2.5D2 EACHEYE
[2020-10-11] MEDS ORDERED: ONDANSETRON 2MG/ML, 2ML IVPush ONE (21:00)
[2020-10-11] MEDS ORDERED: SODIUM CHLORIDE FLUSH 10ML SYR IVF ONE (21:00)
--- NOTE | 2020-10-11 21:01 | NUR ---
PT. IS A & O X 4 WITH A GCS OF 15. PT. HAS C/O A ONE DAY HX OF RIGHT LOWER QUADRANT PAIN. PT.'S LUNGS ARE CTA. MM ARE PINK AND MOIST WITH PULSES +2 THROUGHOUT. PT. REPORTS INCREASED PAIN WITH AMBULATION. PT.'S ABD IS SOFT AND TENDER WITH PALPATION. BS + X 4 QUADS. PULSES ARE + 2 THROUGHOUT. CAP REFILL IS BRISK, LESS THAN 2 SECONDS. IV ACCESS ESTABLISHED. LABS AND UA OBTAINED AND SENT. PT. MEDICATED ORDERED. SR ARE UP X 2 WITH THE CALL LIGHT IN PLACE. PT.'S HOB IS ELEVATED GREATER THAN 30 DEGREES AND SHE HAS A BLANKET IN PLACE FOR WARMTH.
[2020-10-11] MEDS ORDERED: ONDANSETRON 2MG/ML, 2ML ONE (21:09)
[2020-10-11] MEDS ORDERED: MORPHINE SULFATE 4 MG/ML, 1ML ONE ×2 (21:09→23:44)
[2020-10-11] MEDS: MORPHINE SULFATE 4 MG/ML, 1ML IVPush PRN ×2 (21:19→23:47)
[2020-10-11 21:24] LABS: ALBUMIN 3.7 g/dL (3.4-5.0); ANION GAP 5 mmol/L (5-15); CALCIUM 8.9 mg/dL (8.5-10.1); CHLORIDE 108 mmol/L (98-107)
[2020-10-11 21:29] LABS: BASOPHILS % (AUTO) 1 % (0-1); EOSINOPHILS % (AUTO) 1 % (1-7); LYMPHOCYTES % (AUTO) 29 % (22-44); MEAN CORPUSCULAR HEMOGLOBIN 31.1 pg (27.0-34.8); MEAN CORPUSCULAR HGB CONC 33.6 g/dL (32.4-35.8); MEAN PLATELET VOLUME 7.9 fL (7.4-10.4); MONOCYTES % (AUTO) 8 % (2-9); NEUTROPHILS % (AUTO) 62 % (42-75); PLATELET COUNT 360 x10^3/uL (130-400); RED BLOOD COUNT 4.61 x10^6/uL (3.82-5.3)
[2020-10-11 21:30] LABS: MD NO
[2020-10-11 21:33] LABS: ALANINE AMINOTRANSFERASE 42 U/L (12-78); ALKALINE PHOSPHATASE 90 U/L (45-117); BILIRUBIN,TOTAL 0.4 mg/dL (0.2-1.0); CREATININE 0.67 mg/dL (0.55-1.02); TOTAL PROTEIN 8.6 g/dL (6.4-8.2)
[2020-10-11 21:35] LABS: MICROSCOPIC AUTO
--- NOTE | 2020-10-11 21:53 | NUR ---
PT. REPORTS RELIEF FROM PAIN MEDS. PT. IS RESTING WITHOUT CONCERNS AT THIS TIME. VSS.
[2020-10-11] MEDS ORDERED: OMNIPAQUE 350 MG/ML, 100ML BOTTLE ONE (23:07)
--- NOTE | 2020-10-11 23:13 | NUR ---
GEN SURG PAGED.
--- NOTE | 2020-10-11 23:40 | NUR ---
PT.'S VITALS ARE STABLE. PT. WAS MEDICATED FOR PAIN.
--- NOTE | 2020-10-11 23:49 | NUR ---
REPORT GIVEN TO ACCEPTING RN.
--- NOTE | 2020-10-11 23:54 | NUR ---
THROUGHPUT RN: SPOKE W/ OR STAFF REGARDING CONSULT. STAFF TO CHECK W/ SURGEON TO SEE IF WE NEED TO REF OUT FOR CONSULT.
--- NOTE | 2020-10-12 00:08 | NUR ---
REPORT RECEIVED FROM KADEN JONES. PT RESTING ON GURNEY W/ CALL LIGHT IN REACH AND SIDE RAILS UPX2. AWAITING SURG CONSULT.
[2020-10-12] MEDS: SODIUM CHLORIDE 0.9% 1,000 ML IV SCH ×3 (01:57→16:26)
[2020-10-12] MEDS ORDERED: BISACODYL 10 MG SUPP PR PRN (02:00)
[2020-10-12] MEDS ORDERED: ONDANSETRON 2MG/ML, 2ML IVPush PRN (02:00)
--- NOTE | 2020-10-12 02:07 | NUR ---
PT REPORTS DIZZINESS AND EPIGASTRIC DISCOMFORT. WILL UPDATE PROVIDER. VSS, IVF INFUSING APPROPRIATELY, NADN.
--- NOTE | 2020-10-12 02:36 | NUR ---
REPORT GIVEN TO DARRIUS JONES. PT VSS, KENISHAN. IVF INFUSING APPROPRIATELY. PT IS READY FOR TRANSPORT AT THIS TIME.
[2020-10-12 03:18] VITALS: BP 130/86
[2020-10-12] MEDS: morphine SULFATE 10 MG/ML, 1ML IVPush PRN ×2 (03:31→16:26)
[2020-10-12 08:08] VITALS: BP 106/70
[2020-10-12] MEDS ORDERED: CHLORHEXIDINE 15 ML UDC ONE (09:48)
[2020-10-12] MEDS ORDERED: PROPOFOL 10 MG/ML, 20ML ONE (10:23)
[2020-10-12] MEDS ORDERED: HYDROmorphone 1 MG/ML, 1ML INJ IVPush PRN (11:00)
[2020-10-12] MEDS ORDERED: PROMETHAZINE 25 MG/ML, 1ML IVPush PRN (11:00)
[2020-10-12] MEDS ORDERED: FENTANYL PF 100 MCG/2ML IV PRN (11:00)
[2020-10-12] MEDS ORDERED: ALBUTEROL SULFATE 2.5 MG/3 ML NPPB PRN (11:00)
[2020-10-12] MEDS ORDERED: METHOCARBAMOL 1,000 MG in DEXTROSE 5% 100 ML IV PRN (11:00)
[2020-10-12] MEDS ORDERED: OXYcodone 5 MG/5 ML ORAL.SOL UDC PO PRN (11:00)
[2020-10-12] MEDS ORDERED: MIDAZOLAM 1 MG/ML, 2ML IV PRN (11:00)
[2020-10-12] MEDS ORDERED: LABETALOL 5MG/ML, 20ML IV PRN (11:00)
[2020-10-12] MEDS ORDERED: hydrALAzine 20 MG/ML, 1ML IV PRN (11:00)
[2020-10-12] MEDS ORDERED: MEPERIDINE/PF 25MG/0.5ML IVPush PRN (11:00)
[2020-10-12] MEDS ORDERED: FENTANYL PF 100 MCG/2ML ONE (11:38)
[2020-10-12] MEDS ORDERED: GOLYTELY 4,000ML ORAL.SOL PO ONE (16:00)
[2020-10-12 20:11] VITALS: BP 93/62
[2020-10-13 04:02] VITALS: BP 106/70
[2020-10-13] MEDS: SODIUM CHLORIDE 0.9% 1,000 ML IV SCH ×2 (06:39→17:20)
[2020-10-13 07:10] VITALS: BP 100/58
[2020-10-13] MEDS: morphine SULFATE 10 MG/ML, 1ML IVPush PRN (10:24)
[2020-10-13] MEDS ORDERED: PROPOFOL 50 ML ONE (11:54)
[2020-10-13] MEDS ORDERED: HYDROmorphone 1 MG/ML, 1ML INJ IVPush PRN (12:30)
[2020-10-13] MEDS ORDERED: LABETALOL 5MG/ML, 20ML IV PRN (12:30)
[2020-10-13] MEDS ORDERED: EPHEDRINE 50 MG/ML, 1ML IVPush PRN (12:30)
[2020-10-13] MEDS ORDERED: ONDANSETRON 2MG/ML, 2ML IVPush PRN (12:30)
[2020-10-13] MEDS ORDERED: ACETAMINOPHEN 325 MG TABLET PO PRN (12:30)
[2020-10-13] MEDS ORDERED: MEPERIDINE/PF 25MG/0.5ML IVPush PRN (12:30)
[2020-10-13] MEDS ORDERED: FENTANYL PF 100 MCG/2ML IV PRN (12:30)
[2020-10-13] MEDS ORDERED: OXYcodone 5 MG/5 ML ORAL.SOL UDC PO PRN (12:30)
[2020-10-13] MEDS ORDERED: PROMETHAZINE 25 MG/ML, 1ML IVPush PRN (12:30)
[2020-10-13] MEDS ORDERED: hydrALAzine 20 MG/ML, 1ML IV PRN (12:30)
[2020-10-13 12:38] LABS: HCG UR SG 1.009 (1.003-1.030)
[2020-10-13] MEDS ORDERED: CHLORHEXIDINE 15 ML UDC ONE (13:16)
[2020-10-13] MEDS ORDERED: ONDANSETRON 2MG/ML, 2ML ONE (15:22)
[2020-10-13 16:25] VITALS: BP 100/59
[2020-10-13 19:59] VITALS: BP 102/70
[2020-10-14] VITALS: BP 94/54
[2020-10-14] MEDS: SODIUM CHLORIDE 0.9% 1,000 ML IV SCH ×2 (01:00→09:07)
[2020-10-14 04:15] VITALS: BP 93/62
[2020-10-14 06:44] LABS: BASOPHILS % (AUTO) 1 % (0-1); EOSINOPHILS % (AUTO) 2 % (1-7); LYMPHOCYTES % (AUTO) 42 % (22-44); MEAN CORPUSCULAR HEMOGLOBIN 31.1 pg (27.0-34.8); MEAN CORPUSCULAR HGB CONC 33.8 g/dL (32.4-35.8); MONOCYTES % (AUTO) 6 % (2-9); NEUTROPHILS % (AUTO) 50 % (42-75); PLATELET COUNT 320 x10^3/uL (130-400); RED BLOOD COUNT 3.86 x10^6/uL (3.82-5.3); RED CELL DISTRIBUTION WIDTH 12.8 % (9.6-15.2)
[2020-10-14 06:47] LABS: MD NO
[2020-10-14 06:50] VITALS: BP 103/69
[2020-10-14 06:54] LABS: ALBUMIN 2.9 g/dL (3.4-5.0); ANION GAP 6 mmol/L (5-15); CHLORIDE 114 mmol/L (98-107)
[2020-10-14] MEDS ORDERED: MULTIVITS,STRESS FORMULA 1 TABLET PO SCH (09:00)
[2020-10-14] MEDS ORDERED: ZINC SULFATE 220 MG CAPSULE PO SCH (09:00)
[2020-10-14] MEDS ORDERED: CHOLECALCIFEROL 5,000u TAB PO SCH (09:00)
[2020-10-14] MEDS: morphine SULFATE 10 MG/ML, 1ML IVPush PRN (09:09)
[2020-10-14] MEDS ORDERED: POTASSIUM PHOSPHATE 44 MEQ in SODIUM CHLORIDE 0.9% 500 ML IV ONE (09:30)
[2020-10-14] MEDS ORDERED: CHOL500045 PO (11:12)
[2020-10-14] MEDS ORDERED: ZINC220C7 PO (11:12)
[2020-10-14] MEDS ORDERED: ASCO500T9 PO (11:12)
[2020-10-14 12:45] VITALS: BP 106/63
[2020-10-14] MEDS ORDERED: ASCORBIC ACID 500 MG TABLET PO SCH (17:00)
== END 2020-10-14 13:45 | disposition home or self-care (01) | DRG 390 ==
LOC: ED 23:36 → EDIP 10-12 02:53 → 4NE 10-12 02:54 → DCLOUNGE 10-14 13:36
PROVIDERS: ADMIT Internal Medicine; ATTEND Family Medicine
PROC: 0DBN8ZX Excision of Sigmoid Colon, Via Natural or Artificial Opening Endoscopic, Diagnostic (ICD-10-PCS; principal; 2020-10-12 10:30)
PROC: 0DJ08ZZ Inspection of Upper Intestinal Tract, Via Natural or Artificial Opening Endoscopic (ICD-10-PCS; 2020-10-13)
PROC: 0DJD8ZZ Inspection of Lower Intestinal Tract, Via Natural or Artificial Opening Endoscopic (ICD-10-PCS; 2020-10-13)
DX: K56.699 Other intestinal obstruction unspecified as to partial versus complete obstruction (principal); F41.1 Generalized anxiety disorder; N83.202 Unspecified ovarian cyst, left side; Z20.828 Contact with and (suspected) exposure to other viral communicable diseases; Z80.0 Family history of malignant neoplasm of digestive organs; Z86.19 Personal history of other infectious and parasitic diseases; Z87.442 Personal history of urinary calculi
CPT/HCPCS: 36415; 74177; 80053; 80069; 81001; 81025; 82962; 83690; 83735; 84703; 85025; 87635; 88305; G0378; J2405; J2704; J3010; Q9967; J2270; J7030; J7040

== ENCOUNTER 2020-10-23 18:10 | Emergency (ER) | payer OTHER, MEDICAID ==
[~2020-10-23] VITALS: Ht 162.6 cm; Wt 85.5 kg
[~2020-10-23 18:10] MED LIST changes: +ASCO500T9 PO; +CHOL500045 PO; +ZINC220C7 PO
--- NOTE | 2020-10-23 20:42 | NUR ---
PATIENT WALKED BACK FROM LOBBY WITH CHIEF C/O ABD PAIN X2 DAYS. PATIENT STATES PAIN HAS BEEN OFF AND ON X2 DAYS, BUT TODAY HAS BEEN WORSE. PATIENT STATES SHE HAS NOT HAD A BM IN 7 DAYS, AND WHEN SHE TRIES TO EAT SHE STARTS FEELING NAUSEAUS. PATIENT REPORTS BEING HOSPITALIZED HERE LAST WEEK FOR 3 DAYS, AND HAD A COLONOSCOPY AND ENDOSCOPY DONE. JAK BANG, CALL LIGHT WITHIN REACH.
[2020-10-23 20:46] LABS: BASOPHILS % (AUTO) 1 % (0-1); EOSINOPHILS % (AUTO) 1 % (1-7); LYMPHOCYTES % (AUTO) 42 % (22-44); MEAN CORPUSCULAR HGB CONC 33.7 g/dL (32.4-35.8); MEAN PLATELET VOLUME 7.8 fL (7.4-10.4); MONOCYTES % (AUTO) 5 % (2-9); NEUTROPHILS % (AUTO) 51 % (42-75); PLATELET COUNT 353 x10^3/uL (130-400); RED BLOOD COUNT 4.36 x10^6/uL (3.82-5.3); RED CELL DISTRIBUTION WIDTH 12.9 % (9.6-15.2)
[2020-10-23 20:52] LABS: ALBUMIN 3.8 g/dL (3.4-5.0); ANION GAP 3 mmol/L (5-15); CALCIUM 8.6 mg/dL (8.5-10.1); CHLORIDE 108 mmol/L (98-107)
[2020-10-23 20:58] LABS: ALANINE AMINOTRANSFERASE 32 U/L (12-78); ALKALINE PHOSPHATASE 86 U/L (45-117); BILIRUBIN,TOTAL 0.3 mg/dL (0.2-1.0); CREATININE 0.66 mg/dL (0.55-1.02); TOTAL PROTEIN 8.6 g/dL (6.4-8.2)
[2020-10-23 21:09] LABS: MD NO
[2020-10-23] MEDS ORDERED: SODIUM CHLORIDE 0.9% 1,000ML IVBOLUS ONE (21:30)
[2020-10-23] MEDS ORDERED: ONDANSETRON 2MG/ML, 2ML IVPush ONE (21:30)
[2020-10-23] MEDS ORDERED: ONDANSETRON 2MG/ML, 2ML ONE (21:36)
[2020-10-23 21:53] LABS: MICROSCOPIC AUTO
--- NOTE | 2020-10-23 22:00 | NUR ---
22 GAUGE IV STARTED RIGHT UPPER ARM, PATIENT MEDICATED PER eMAR. PATIENT TO CT SCAN.
[2020-10-23] MEDS ORDERED: OMNIPAQUE 350 MG/ML, 100ML BOTTLE ONE (22:17)
--- NOTE | 2020-10-23 22:50 | NUR ---
PATIENT RESTING IN GURNEY WITH EYES CLOSED, RESP EVEN AND UNLABORED, NADN, VSS, CALL LIGHT WITHIN REACH.
[2020-10-23 23:09] VITALS: BP 108/45
--- NOTE | 2020-10-23 23:22 | NUR ---
Patient given discharge instructions and prescription and they have confirmed that they understand the instructions. Work note provided to patient. Patient stable and ambulatory with steady gait from ED.
== END 2020-10-23 23:22 | disposition home or self-care (01) ==
LOC: ED 21:38
DX: K59.00 Constipation, unspecified (principal); R10.84 Generalized abdominal pain; R11.2 Nausea with vomiting, unspecified; J45.909 Unspecified asthma, uncomplicated
CPT/HCPCS: 36415; 74021; 74177; 80053; 81001; 83690; 84703; 85025; 87086; 93005; 96361; 96374; 99285; J2405; J7030; Q9967

== ENCOUNTER 2020-12-28 22:30 | Emergency (ER) | payer OTHER, MEDICAID ==
[~2020-12-28] VITALS: Ht 162.6 cm; Wt 85.5 kg
--- NOTE | 2020-12-28 22:39 | NUR ---
RN at bedside. Pt reports right sided flank pain. Reports she was seen in November and told she had kidney stones.
--- NOTE | 2020-12-28 23:02 | NUR ---
Provider at bedside.
--- NOTE | 2020-12-28 23:02 | NUR ---
UA collected and sent to lab
--- NOTE | 2020-12-28 23:16 | NUR ---
IV started, labs drawn.
[2020-12-28] MEDS ORDERED: HYDROmorphone 1 MG/ML, 1ML INJ ONE (23:18)
[2020-12-28] MEDS ORDERED: ONDANSETRON 2MG/ML, 2ML ONE (23:18)
[2020-12-28] MEDS: HYDROmorphone 1 MG/ML, 1ML INJ IVPush PRN (23:22)
--- NOTE | 2020-12-28 23:23 | NUR ---
Medicated per eMAR.
[2020-12-28] MEDS ORDERED: ONDANSETRON 2MG/ML, 2ML IVPush ONE (23:30)
[2020-12-28 23:33] LABS: MICROSCOPIC AUTO
[2020-12-28 23:37] LABS: MEAN CORPUSCULAR HGB CONC 33.8 g/dL (32.4-35.8); MEAN PLATELET VOLUME 7.3 fL (7.4-10.4); PLATELET COUNT 412 x10^3/uL (130-400); RED BLOOD COUNT 4.15 x10^6/uL (3.82-5.3); RED CELL DISTRIBUTION WIDTH 13.4 % (9.6-15.2)
[2020-12-28 23:44] LABS: ALANINE AMINOTRANSFERASE 54 U/L (12-78); ALBUMIN 3.7 g/dL (3.4-5.0); ANION GAP 6 mmol/L (5-15); CALCIUM 8.8 mg/dL (8.5-10.1); CHLORIDE 107 mmol/L (98-107); CREATININE 0.81 mg/dL (0.55-1.02)
[2020-12-28 23:49] LABS: ALKALINE PHOSPHATASE 130 U/L (45-117); BILIRUBIN,TOTAL 0.2 mg/dL (0.2-1.0); TOTAL PROTEIN 8.8 g/dL (6.4-8.2)
[2020-12-29 00:01] LABS: MD YES
[2020-12-29 00:11] LABS: EOS#(MANUAL) 0.16 x10^3/uL (0.0-0.4); EOS% (MANUAL) 2 % (1-7); LYMPH#(MANUAL) 4.84 x10^3/uL (1-3.4); LYMPHS% (MANUAL) 59 % (22-44); METAMYELOCYTES# (MANUAL) 0.08 x10^3/uL (0-0); METAMYELOCYTES% (MANUAL) 1 % (0-1); MONOS#(MANUAL) 0.66 x10^3/uL (0.3-2.7); MONOS% (MANUAL) 8 % (2-9); REACTIVE LYMPHS # (MANUAL) 0.08 x10^3/uL (0-0); REACTIVE LYMPHS % (MANUAL) 1 % (0-0); SEG#(MANUAL) 2.38 x10^3/uL (1.8-6.8); SEGS% (MANUAL) 29 % (42-75)
[2020-12-29 00:12] LABS: <PLATELET ESTIMATE> INCREASED; <PLT MORPHOLOGY> NORMAL PLT MORPH; ANISOCYTOSIS 1+
[2020-12-29 00:13] LABS: HYPOCHROMIA 1+
--- NOTE | 2020-12-29 00:26 | NUR ---
Pt back from imaging.
[2020-12-29] MEDS ORDERED: CEFTRIAXONE PMX 1GM/50ML 50 ML ONE (00:41)
[2020-12-29] MEDS ORDERED: HYDROmorphone 1 MG/ML, 1ML INJ ONE (00:41)
[2020-12-29] MEDS ORDERED: ONDANSETRON 2MG/ML, 2ML ONE (00:41)
--- NOTE | 2020-12-29 00:45 | NUR ---
Provider at bedside.
[2020-12-29] MEDS: HYDROmorphone 1 MG/ML, 1ML INJ IVPush PRN (00:46)
[2020-12-29] MEDS ORDERED: CEFTRIAXONE PMX 1GM/50ML 50 ML IV ONE (01:00)
[2020-12-29] MEDS ORDERED: ONDANSETRON 2MG/ML, 2ML IVPush ONE (01:00)
--- NOTE | 2020-12-29 01:17 | NUR ---
Report to KAREN STARR.
--- NOTE | 2020-12-29 01:19 | NUR ---
Report received from KAREN Hernández. This RN to assume care.
[2020-12-29] MEDS ORDERED: SODIUM CHLORIDE 0.9% 1,000ML IVBOLUS ONE (02:00)
--- NOTE | 2020-12-29 02:40 | NUR ---
Fluid still infusing; patient tbdc.
[2020-12-29 03:00] VITALS: BP 105/53
--- NOTE | 2020-12-29 03:22 | NUR ---
Discharge instructions given. All questions and concerns addressed. Patient ambulatory with a steady gait. Belongings with patient.
== END 2020-12-29 03:24 | disposition home or self-care (01) ==
LOC: ED 23:22
DX: N10 Acute pyelonephritis (principal); J45.909 Unspecified asthma, uncomplicated
CPT/HCPCS: 36415; 74176; 80053; 81001; 83690; 84703; 85025; 87086; 96365; 96375; 96376; 99284; J0696; J1170; J2405; J7030

== ENCOUNTER 2021-01-03 19:00 | Emergency (ER) | payer OTHER, MEDICAID ==
[~2021-01-03] VITALS: Ht 162.6 cm; Wt 86.8 kg
--- NOTE | 2021-01-03 19:09 | NUR ---
U/A CUP WITH INSTRUCT FOR CLEAN CATCH PROVIDED AT TRIAGE.
[2021-01-03 19:31] LABS: MICROSCOPIC NOT IND
[2021-01-03 19:36] LABS: BASOPHILS % (AUTO) 1 % (0-1); EOSINOPHILS % (AUTO) 2 % (1-7); LYMPHOCYTES % (AUTO) 45 % (22-44); MEAN CORPUSCULAR HEMOGLOBIN 31.4 pg (27.0-34.8); MEAN CORPUSCULAR HGB CONC 34.1 g/dL (32.4-35.8); MEAN PLATELET VOLUME 7.3 fL (7.4-10.4); MONOCYTES % (AUTO) 6 % (2-9); NEUTROPHILS % (AUTO) 46 % (42-75); PLATELET COUNT 393 x10^3/uL (130-400); RED BLOOD COUNT 4.27 x10^6/uL (3.82-5.3); RED CELL DISTRIBUTION WIDTH 13.7 % (9.6-15.2)
[2021-01-03 19:38] LABS: MD NO
[2021-01-03 19:47] LABS: ALANINE AMINOTRANSFERASE 87 U/L (12-78); ANION GAP 11 mmol/L (5-15); CHLORIDE 105 mmol/L (98-107); CREATININE 0.85 mg/dL (0.55-1.02)
[2021-01-03 19:49] LABS: ALKALINE PHOSPHATASE 128 U/L (45-117); BILIRUBIN,TOTAL 0.2 mg/dL (0.2-1.0); TOTAL PROTEIN 8.9 g/dL (6.4-8.2)
--- NOTE | 2021-01-03 20:21 | NUR ---
PT AMBULATED TO ROOM WITH STEADY GAIT.
[2021-01-03] MEDS ORDERED: SODIUM CHLORIDE 0.9% 1,000ML IVBOLUS ONE (21:00)
[2021-01-03] MEDS ORDERED: SODIUM CHLORIDE FLUSH 10ML SYR IVF ONE (21:00)
[2021-01-03] MEDS ORDERED: MORPHINE SULFATE 4 MG/ML, 1ML IVPush PRN (21:00)
[2021-01-03] MEDS ORDERED: ONDANSETRON 2MG/ML, 2ML IVPush ONE (21:00)
[2021-01-03] MEDS ORDERED: MORPHINE SULFATE 4 MG/ML, 1ML ONE (21:10)
[2021-01-03] MEDS ORDERED: ONDANSETRON 2MG/ML, 2ML ONE (21:10)
[2021-01-03] MEDS ORDERED: HYDROmorphone 1 MG/ML, 1ML INJ SQ ONE (21:32)
[2021-01-03] MEDS ORDERED: ONDANSETRON ODT 4 MG ONE (21:32)
[2021-01-03] MEDS ORDERED: HYDROmorphone 1 MG/ML, 1ML INJ IM ONE (21:32)
[2021-01-03] MEDS ORDERED: HYDROmorphone 1 MG/ML, 1ML INJ ONE (21:32)
--- NOTE | 2021-01-03 21:39 | NUR ---
PIV PLACEMENT ATTEMPTED X3. ERP OK TO CHANGE ORDERS AND GIVE PO FLUIDS. MEDS ADMIN PER JAN. PT GIVEN H20. FRIEND AT BEDSIDE.
[2021-01-03] MEDS ORDERED: ONDANSETRON ODT 4 MG PO ONE (22:00)
[2021-01-03 22:16] VITALS: BP 98/58
--- NOTE | 2021-01-03 22:27 | NUR ---
ALL RESULTS ARE BACK AT THIS TIME. CHART UP FOR RECHECK.
== END 2021-01-03 22:56 | disposition home or self-care (01) ==
LOC: ED 20:40
DX: B17.9 Acute viral hepatitis, unspecified (principal); R30.0 Dysuria; J45.909 Unspecified asthma, uncomplicated
CPT/HCPCS: 36415; 76700; 80053; 80074; 81003; 85025; 96372; 99284; J1170; Q0162

== ENCOUNTER 2021-02-28 18:38 | Emergency (ER) | payer OTHER, MEDICAID ==
[~2021-02-28] VITALS: Ht 165.1 cm; Wt 90.9 kg
[2021-02-28 18:42] VITALS: BP 141/77
[2021-02-28] MEDS ORDERED: SODIUM CHLORIDE FLUSH 10ML SYR IVF ONE (19:00)
[2021-02-28] MEDS ORDERED: KETOROLAC 30 MG/1 ML IVPush ONE (19:00)
[2021-02-28] MEDS ORDERED: ONDANSETRON 2MG/ML, 2ML IVPush ONE (19:00)
[2021-02-28 19:18] LABS: BASOPHILS % (AUTO) 1 % (0-1); EOSINOPHILS % (AUTO) 1 % (1-7); LYMPHOCYTES % (AUTO) 35 % (22-44); MEAN CORPUSCULAR HEMOGLOBIN 31.1 pg (27.0-34.8); MEAN CORPUSCULAR HGB CONC 33.7 g/dL (32.4-35.8); MEAN PLATELET VOLUME 7.4 fL (7.4-10.4); MONOCYTES % (AUTO) 7 % (2-9); NEUTROPHILS % (AUTO) 56 % (42-75); PLATELET COUNT 328 x10^3/uL (130-400); RED BLOOD COUNT 4.46 x10^6/uL (3.82-5.3); RED CELL DISTRIBUTION WIDTH 13.1 % (9.6-15.2)
[2021-02-28 19:23] LABS: MD NO
[2021-02-28] MEDS ORDERED: ONDANSETRON 2MG/ML, 2ML ONE (19:28)
[2021-02-28] MEDS ORDERED: MORPHINE SULFATE 4 MG/ML, 1ML ONE (19:28)
[2021-02-28] MEDS ORDERED: KETOROLAC 30 MG/1 ML ONE (19:28)
[2021-02-28 19:30] LABS: ALBUMIN 3.5 g/dL (3.4-5.0); ANION GAP 7 mmol/L (5-15); CALCIUM 9.1 mg/dL (8.5-10.1); CHLORIDE 108 mmol/L (98-107); CREATININE 0.55 mg/dL (0.55-1.02)
[2021-02-28] MEDS ORDERED: MORPHINE SULFATE 4 MG/ML, 1ML IVPush PRN (19:30)
[2021-02-28 19:35] LABS: ALANINE AMINOTRANSFERASE 59 U/L (12-78); ALKALINE PHOSPHATASE 115 U/L (45-117); BILIRUBIN,TOTAL 0.2 mg/dL (0.2-1.0); TOTAL PROTEIN 8.3 g/dL (6.4-8.2)
--- NOTE | 2021-02-28 19:49 | NUR ---
PT IN ROOM, CALM AND COOPERATIVE. MILD COMPLAINT OF PAIN TO ABDOMEN. PIV STARTED TO RIGHT UPPER ARM 22G X2 ATTEMPT. MEDS GIVEN PER EMAR, AND PT TOLERATED WELL. PRODUCT CRAFTSMAN TO BEDSIDE TO TAKE PT TO CT.
[2021-02-28] MEDS ORDERED: OMNIPAQUE 350 MG/ML, 100ML BOTTLE ONE (20:00)
[2021-02-28 20:53] LABS: MICROSCOPIC AUTO
--- NOTE | 2021-02-28 21:27 | NUR ---
Patient given discharge instructions and they have confirmed that they understand the instructions. Patient ambulatory with steady gait.
== END 2021-02-28 21:43 | disposition home or self-care (01) ==
LOC: ED 21:00
DX: N83.291 Other ovarian cyst, right side (principal); N30.00 Acute cystitis without hematuria; R10.31 Right lower quadrant pain; R10.32 Left lower quadrant pain; J45.909 Unspecified asthma, uncomplicated
CPT/HCPCS: 36415; 74177; 80053; 81001; 83690; 84703; 85025; 87086; 99285; Q9967

== ENCOUNTER 2021-03-29 21:56 | Emergency (ER) | payer MEDICAID, OTHER ==
[~2021-03-29] VITALS: Ht 162.6 cm; Wt 89.8 kg
[~2021-03-29 21:56] MED LIST changes: -VANC1VIA3 PO; +VANC1VIA36 PO
[2021-03-29] MEDS ORDERED: PROCHLORPERAZINE 5 MG/ML, 2ML ONE (22:40)
[2021-03-29] MEDS ORDERED: DIPHENHYDRAMINE 25 MG CAPSULE ONE (22:41)
[2021-03-29] MEDS ORDERED: KETOROLAC 30 MG/1 ML ONE (22:41)
[2021-03-29 22:51] LABS: BASOPHILS % (AUTO) 1 % (0-1); EOSINOPHILS % (AUTO) 1 % (1-7); LYMPHOCYTES % (AUTO) 39 % (22-44); MEAN CORPUSCULAR HEMOGLOBIN 31.5 pg (27.0-34.8); MEAN CORPUSCULAR HGB CONC 34.8 g/dL (32.4-35.8); MEAN PLATELET VOLUME 7.3 fL (7.4-10.4); MONOCYTES % (AUTO) 6 % (2-9); NEUTROPHILS % (AUTO) 53 % (42-75); PLATELET COUNT 373 x10^3/uL (130-400); RED BLOOD COUNT 4.77 x10^6/uL (3.82-5.3)
[2021-03-29 22:53] LABS: MD NO
[2021-03-29 22:59] LABS: MICROSCOPIC NOT IND
[2021-03-29] MEDS ORDERED: DIPHENHYDRAMINE 25 MG CAPSULE PO ONE (23:00)
[2021-03-29] MEDS ORDERED: KETOROLAC 30 MG/1 ML IM ONE (23:00)
[2021-03-29] MEDS ORDERED: PROCHLORPERAZINE 5 MG/ML, 2ML IM ONE (23:00)
--- NOTE | 2021-03-29 23:02 | NUR ---
Pt in CT
[2021-03-29 23:03] LABS: ALBUMIN 4.2 g/dL (3.4-5.0); ANION GAP 8 mmol/L (5-15); CALCIUM 9.5 mg/dL (8.5-10.1); CHLORIDE 104 mmol/L (98-107); CREATININE 0.65 mg/dL (0.55-1.02)
[2021-03-29 23:38] VITALS: BP 106/61
== END 2021-03-30 00:14 | disposition home or self-care (01) ==
LOC: ED 22:24
DX: R51.9 Headache, unspecified (principal); J45.909 Unspecified asthma, uncomplicated; R00.0 Tachycardia, unspecified
CPT/HCPCS: 36415; 70450; 80048; 81003; 82040; 84703; 85025; 93005; 96372; 99285; J0780; J1885; Q0163

== ENCOUNTER 2021-04-26 08:18 | Emergency (ER) | payer OTHER ==
[~2021-04-26] VITALS: Ht 162.6 cm; Wt 90.2 kg
--- NOTE | 2021-04-26 08:35 | NUR ---
PT PLACED IN GOWN FOR ERP EXAM. PT WITH C/O DIFFUSE ABD PAIN STARTING 3 WEEKS AGO AND PROGRESSIVELY GETTING WORSE, NOW HAVING STABBING PAIN. PT DENIES N/V/D. PT PLACED ON BP, CONT PULSE OX. PIV INITITATED. PT TO GO TO CT
[2021-04-26] MEDS ORDERED: ONDANSETRON 2MG/ML, 2ML ONE (08:51)
[2021-04-26] MEDS ORDERED: MORPHINE SULFATE 4 MG/ML, 1ML ONE (08:51)
[2021-04-26 08:57] LABS: MICROSCOPIC NOT IND
[2021-04-26] MEDS ORDERED: ONDANSETRON 2MG/ML, 2ML IVPush ONE (09:00)
[2021-04-26] MEDS ORDERED: MORPHINE SULFATE 4 MG/ML, 1ML IVPush PRN (09:00)
[2021-04-26] MEDS ORDERED: SODIUM CHLORIDE FLUSH 10ML SYR IVF ONE (09:00)
[2021-04-26 09:15] LABS: BASOPHILS % (AUTO) 1 % (0-1); EOSINOPHILS % (AUTO) 2 % (1-7); LYMPHOCYTES % (AUTO) 49 % (22-44); MEAN CORPUSCULAR HEMOGLOBIN 31.6 pg (27.0-34.8); MEAN CORPUSCULAR HGB CONC 34.3 g/dL (32.4-35.8); MEAN PLATELET VOLUME 7.3 fL (7.4-10.4); MONOCYTES % (AUTO) 7 % (2-9); NEUTROPHILS % (AUTO) 42 % (42-75); PLATELET COUNT 351 x10^3/uL (130-400); RED BLOOD COUNT 4.07 x10^6/uL (3.82-5.3)
[2021-04-26 09:23] LABS: ALANINE AMINOTRANSFERASE 123 U/L (12-78); ALBUMIN 3.6 g/dL (3.4-5.0); ANION GAP 10 mmol/L (5-15); CALCIUM 9.2 mg/dL (8.5-10.1); CHLORIDE 105 mmol/L (98-107); CREATININE 0.59 mg/dL (0.55-1.02)
[2021-04-26 09:25] LABS: BILIRUBIN,TOTAL 0.2 mg/dL (0.2-1.0); TOTAL PROTEIN 8.4 g/dL (6.4-8.2)
[2021-04-26 09:27] LABS: ALKALINE PHOSPHATASE 145 U/L (45-117)
[2021-04-26] MEDS ORDERED: OMNIPAQUE 350 MG/ML, 100ML BOTTLE ONE (10:23)
--- NOTE | 2021-04-26 10:47 | NUR ---
PT BACK FROM CT, RESTING IN RM, VSS. DENIES NEEDS
--- NOTE | 2021-04-26 11:01 | NUR ---
REPORT OF PT FROM KAREN SINGH AND ASSUMING CARE OF PT AT THIS TIME.
[2021-04-26 11:28] VITALS: BP 106/64
--- NOTE | 2021-04-26 11:46 | NUR ---
PT D/C WITH D/C SUMMARY AND SCRIPTS. ALL QUESTIONS ANSWERED. PT AMBULATES TO REGISTRATION DESK WITH STEADY GAIT FOR D/C HOME WITH UBER. PT DENIES ANY OTHER NEEDS PERTAINING TO THIS VISIT.
== END 2021-04-26 11:47 ==
LOC: ED 08:47
DX: G89.29 Other chronic pain (principal); R10.13 Epigastric pain; R42 Dizziness and giddiness
CPT/HCPCS: 36415; 74177; 80053; 81003; 83690; 84703; 85025; 96374; 96375; 99285; J2270; J2405; Q9967

== ENCOUNTER 2021-07-13 16:17 | Emergency (ER) | payer OTHER ==
[~2021-07-13] VITALS: Ht 162.6 cm; Wt 83.0 kg
[2021-07-13] MEDS ORDERED: DEXAMETHASONE 4 MG/ML, 1ML PO ONE (17:00)
--- NOTE | 2021-07-13 18:42 | NUR ---
cadd instructor note: Pt to room from lobby.
[2021-07-13] MEDS ORDERED: ACETAMINOPHEN 500 MG TABLET ONE (18:58)
[2021-07-13] MEDS ORDERED: DEXAMETHASONE 4 MG TABLET ONE (18:58)
[2021-07-13] MEDS ORDERED: AMOXICILLIN/CLAV 875-125MG TABLET PO ONE (19:00)
[2021-07-13] MEDS ORDERED: ACETAMINOPHEN 500 MG TABLET PO ONE (19:00)
[2021-07-13] MEDS ORDERED: AMOXICILLIN/CLAV 875-125MG TABLET ONE (19:05)
[2021-07-13] MEDS ORDERED: DEXAMETHASONE 4 MG TABLET PO ONE (19:30)
[2021-07-13 19:46] VITALS: BP 101/57
== END 2021-07-13 20:15 | disposition home or self-care (01) ==
LOC: ED 17:00
DX: J02.0 Streptococcal pharyngitis (principal); M79.10 Myalgia, unspecified site; Z20.822 Contact with and (suspected) exposure to COVID-19
CPT/HCPCS: 87880; 99284; U0003; U0005